=== PATIENT | female | born 1970 ===

== ENCOUNTER 2016-06-17 09:48 | Day surgery (SDC) | payer SELFPAY ==
[2016-04-05 12:11] VITALS: BMI 28.2
[2016-06-17] MEDS ORDERED: Lactated Ringer's 500 ML IV ONE (10:15)
[2016-06-17] MEDS ORDERED: Propofol 10 mg/ml Inj (20 ML) ONE (10:26)
[2016-06-17 11:24] VITALS: BP 98/63; PULSE 59; RESP 14; TEMP 97; O2SAT 97
== END 2016-06-17 12:22 | disposition home or self-care (01) ==
LOC: H.ENDO 09:48
PROVIDERS: ATTEND Internal Medicine Gastroenterology
DX: K30 Functional dyspepsia (principal); K31.9 Disease of stomach and duodenum, unspecified

== ENCOUNTER 2016-08-07 21:22 | Emergency (ER) | payer SELFPAY ==
[2016-08-07 21:23] VITALS: BMI 28.2
[2016-08-07 21:54] VITALS: BP 122/72; PULSE 72; RESP 18; TEMP 98.2; O2SAT 98
--- NOTE | 2016-08-07 22:05 | ED PDOC ---
HPI: Headache Time Seen by Provider: 08/07/16 21:56 Chief Complaint (Nursing): Headache Chief Complaint (Provider): Headache History Per: Patient History/Exam Limitations: no limitations Onset/Duration Of Symptoms: Days (x1) Current Symptoms Are (Timing): Still Present Additional Complaint(s): 21:56 Marilin Galindo is a 46 year old female that presents to the ED with a chief complaint of a left-sided throbbing occipital headache that began last night. Patient states that she took one over the counter migraine tablet with no relief, and that her headache did not wake her up from her sleep. She also reports that she has a history of similar migraines. Past Medical History Reviewed: Historical Data, Nursing Documentation, Vital Signs Vital Signs: Last Vital Signs Temp 98.2 F 08/07/16 21:51 Pulse 72 08/07/16 21:51 Resp 18 08/07/16 21:51 BP 122/72 08/07/16 21:51 Pulse Ox 98 08/07/16 21:51 - Medical History PMH: Migraine Denies: Chronic Kidney Disease - Surgical History Surgical History: Cholecystectomy, (x2) - Family History Family History: States: Unknown Family Hx - Home Medications Home Medications: Ambulatory Orders Medication Instructions Recorded Ibuprofen [Motrin] 600 mg PO Q6 #20 tab 08/07/16 - Allergies Allergies/Adverse Reactions: Allergies Allergy/AdvReac Type Severity Reaction Status Date / Time No Known Allergies Allergy Verified 06/17/16 10:16 Review of Systems Neurological: Positive for: Headache (left-sided throbbing occipital headache) Physical Exam - Reviewed Nursing Documentation Reviewed: Yes Vital Signs Reviewed: Yes - Physical Exam Appears: Positive for: Non-toxic, No Acute Distress Head Exam: Positive for: ATRAUMATIC, NORMOCEPHALIC Skin: Positive for: Normal Color, Warm Eye Exam: Positive for: Normal appearance, EOMI, PERRL Neurologic/Psych: Positive for: Alert, Oriented - ECG O2 Sat by Pulse Oximetry: 98 (RA) Pulse Ox Interpretation: Normal Medical Decision Making Medical Decision Makin:05 Impression: Headache Plan: * Toradol 30 mg IV * Reglan 10 mg IV * Reevaluation * * Pt reports feeling greatly improved on re-eval. Neuro exam remains non focal. Stable for discharge at this time Scribe Attestation: Documented by Traci Hunt, acting as a scribe for Sandy Osman PA-C. Provider Scribe Attestation: All medical record entries made by the Scribe were at my direction and personally dictated by me. I have reviewed the chart and agree that the record accurately reflects my personal performance of the history, physical exam, medical decision making, and the department course for this patient. I have also personally directed, reviewed, and agree with the discharge instructions and disposition. Disposition - Clinical Impression Clinical Impression: Migraine - Patient ED Disposition Is Patient to be Admitted: No - Disposition Disposition: Routine/Home Disposition Time: 23:13 Condition: STABLE Prescriptions: Ibuprofen [Motrin] 600 mg PO Q6 #20 tab Instructions: Migraine Headache (ED) Forms: [facility] (Swedish) Print Language: ICELANDIC - POA Present On Arrival: None
== END 2016-08-07 23:32 | disposition home or self-care (01) ==
LOC: H.ER 21:22
DX: G43.909 Migraine, unspecified, not intractable, without status migrainosus (principal)

== ENCOUNTER 2016-09-14 14:51 | Emergency (ER) | payer SELFPAY ==
[2016-09-14 14:52] VITALS: BMI 28.2
[2016-09-14 15:49] VITALS: TEMP 98
[2016-09-14] MEDS ORDERED: Sodium Chloride 0.9% 1,000 ML IV STA (16:11)
--- NOTE | 2016-09-14 16:21 | ED PDOC ---
HPI: Headache Time Seen by Provider: 09/14/16 16:03 Chief Complaint (Nursing): Headache Chief Complaint (Provider): Headache History Per: Patient History/Exam Limitations: no limitations Onset/Duration Of Symptoms: Days (2) Current Symptoms Are (Timing): Still Present Severity: Moderate Quality: Pressure Preceeding Symptoms: Known Migraine Symptoms Associated Symptoms: Nausea. denies: Photophobia, Blurred Vision, Vomiting, Extremity Weakness Additional History Per: Patient Additional Complaint(s): 46 y/o female complaining of occipital head pain for the last two days, described as moderate to severe constant pressure, and associated with nausea. No fever, vomiting, vision changes, recent stress, or other complaint. She reports a history of similar in the past and did try Tylenol and Excedrin without relief. Patient has been seen in this ED in the past as well for similar when her pain is uncontrollable at home. Past Medical History Vital Signs: Last Vital Signs Temp 98 F 09/14/16 15:45 Pulse 58 L 09/14/16 15:45 Resp 18 09/14/16 15:45 BP 112/49 L 09/14/16 15:45 Pulse Ox 97 09/14/16 15:45 - Medical History PMH: Migraine Denies: Chronic Kidney Disease - Surgical History Surgical History: Cholecystectomy, (x2) - Family History Family History: States: Unknown Family Hx - Social History Current smoker - smoking cessation education provided: No - Home Medications Home Medications: Ambulatory Orders Medication Instructions Recorded Ibuprofen [Motrin] 600 mg PO Q6 #20 tab 08/07/16 Metoclopramide [Reglan] 1 tab PO TID PRN #15 tab 09/14/16 Naproxen [Naprosyn] 1 tab PO BID PRN #60 tab 09/14/16 - Allergies Allergies/Adverse Reactions: Allergies Allergy/AdvReac Type Severity Reaction Status Date / Time No Known Allergies Allergy Verified 09/14/16 15:45 Review of Systems ROS Statement: Except As Marked, All Systems Reviewed And Found Negative Gastrointestinal: Positive for: Nausea Neurological: Positive for: Headache Physical Exam - Reviewed Vital Signs Reviewed: Yes - Physical Exam Appears: Positive for: Well, Non-toxic Head Exam: Positive for: ATRAUMATIC Skin: Positive for: Normal Color, Warm, Dry. Negative for: Diaphoresis Eye Exam: Positive for: Normal appearance, EOMI, PERRL. Negative for: Nystagmus Neck: Positive for: Normal Cardiovascular/Chest: Positive for: Regular Rate, Rhythm. Negative for: Gallop , Murmur, Friction Rub Respiratory: Positive for: Normal Breath Sounds. Negative for: Rales, Rhonchi, Wheezing, Respiratory Distress Gastrointestinal/Abdominal: Positive for: Normal Exam, Bowel Sounds, Soft. Negative for: Tenderness Back: Positive for: Normal Inspection Extremity: Positive for: Normal ROM Neurologic/Psych: Positive for: Alert, resident service coordinator II-XII, Oriented, Cerebellar Tests ( normal finger to nose), Gait (normal). Negative for: Motor/Sensory Deficits - ECG O2 Sat by Pulse Oximetry: 97 (RA) Medical Decision Making Medical Decision Making: Initial Impression: Migraine Initial Plan: - IVF - Reglan and Toradol - Urine Test 1700 Pt feels better. Scribe Attestation: Documented by Katie Mccabe acting as a scribe for Sandy Quintanilla MD. MD Scribe Attestation: All medical record entries made by the Scribe were at my direction and personally dictated by me. I have reviewed the chart and agree that the record accurately reflects my personal performance of the history, physical exam, medical decision making, and the department course for this patient. I have also personally directed, reviewed, and agree with the discharge instructions and disposition. Disposition - Clinical Impression Clinical Impression: Migraine - Disposition Referrals: [facility] [Outside] - 09/15/16 Disposition: Routine/Home Disposition Time: 17:00 Condition: IMPROVED Prescriptions: Metoclopramide [Reglan] 1 tab PO TID PRN #15 tab PRN Reason: Nausea/Vomiting Naproxen [Naprosyn] 1 tab PO BID PRN #60 tab PRN Reason: Pain Instructions: Migraine Headache (ED) Print Language: IRAQI
[2016-09-14 17:38] VITALS: BP 127/76; PULSE 78; RESP 20; O2SAT 98
== END 2016-09-14 17:39 | disposition home or self-care (01) ==
LOC: H.ER 14:51
DX: G43.909 Migraine, unspecified, not intractable, without status migrainosus (principal); R11.0 Nausea

== ENCOUNTER 2017-03-15 09:14 | Emergency (ER) | payer SELFPAY ==
[2017-03-15 09:21] VITALS: BMI 35.5
[2017-03-15 09:23] VITALS: BP 111/68; PULSE 58; RESP 16; TEMP 97.4; O2SAT 98
--- NOTE | 2017-03-15 10:20 | ED PDOC ---
HPI: General Adult Time Seen by Provider: 03/15/17 09:32 Chief Complaint (Nursing): Flu-like Symptoms Chief Complaint (Provider): Flu-like Symptoms History Per: Patient History/Exam Limitations: no limitations Onset/Duration Of Symptoms: Days (x1 week) Current Symptoms Are (Timing): Still Present Additional Complaint(s): Marilin Galindo is a 47 year old female with no significant past medical history, who presents to the ED complaining of flu-like symptoms with associated right ear pain, cough, congestion, fever, and sore throat x1 week. Denies vomiting, diarrhea, abdominal pain, and sick contacts. States she has received a flu vaccine this year. PMD: Non-[facility] Provider Past Medical History Reviewed: Historical Data, Nursing Documentation, Vital Signs Vital Signs: Last Vital Signs Temp 97.4 F L 03/15/17 09:21 Pulse 58 L 03/15/17 09:21 Resp 16 03/15/17 09:21 BP 111/68 03/15/17 09:21 Pulse Ox 98 03/15/17 10:28 - Medical History PMH: Migraine Denies: Chronic Kidney Disease - Surgical History Surgical History: Cholecystectomy, (x2) - Family History Family History: States: Unknown Family Hx - Home Medications Home Medications: Ambulatory Orders Medication Instructions Recorded Ibuprofen [Motrin] 600 mg PO Q6 #20 tab 08/07/16 Metoclopramide [Reglan] 1 tab PO TID PRN #15 tab 09/14/16 Naproxen [Naprosyn] 1 tab PO BID PRN #60 tab 09/14/16 Azithromycin [Zithromax] 250 mg PO DAILY #6 tab 03/15/17 Guaifenesin [Mucinex] 600 mg PO BID PRN #10 tab.er.12h 03/15/17 Ibuprofen [Motrin Tab] 600 mg PO Q6 PRN #15 tab 03/15/17 - Allergies Allergies/Adverse Reactions: Allergies Allergy/AdvReac Type Severity Reaction Status Date / Time No Known Allergies Allergy Verified 09/14/16 15:45 Review of Systems ROS Statement: Except As Marked, All Systems Reviewed And Found Negative Constitutional: Positive for: Fever, Malaise ENT: Positive for: Ear Pain (right), Nose Congestion, Throat Pain Respiratory: Positive for: Cough Gastrointestinal: Negative for: Vomiting, Abdominal Pain, Diarrhea Musculoskeletal: Negative for: Neck Pain Skin: Negative for: Rash Physical Exam - Reviewed Nursing Documentation Reviewed: Yes Vital Signs Reviewed: Yes - Physical Exam Appears: Positive for: Well, Non-toxic, No Acute Distress Head Exam: Positive for: ATRAUMATIC, NORMAL INSPECTION, NORMOCEPHALIC Skin: Positive for: Normal Color, Warm, Dry. Negative for: Rash Eye Exam: Positive for: EOMI, Normal appearance, PERRL ENT: Positive for: TM Is/Are (Fluid behind right TM), Pharyngeal Erythema (mild) . Negative for: Tonsillar Exudate Neck: Positive for: Normal, Painless ROM, Supple Cardiovascular/Chest: Positive for: Regular Rate, Rhythm. Negative for: Murmur Respiratory: Positive for: Normal Breath Sounds. Negative for: Respiratory Distress Gastrointestinal/Abdominal: Positive for: Normal Exam, Bowel Sounds, Soft. Negative for: Tenderness Back: Positive for: Normal Inspection. Negative for: L CVA Tenderness, R CVA Tenderness, Vertebral Tenderness Extremity: Positive for: Normal ROM. Negative for: Pedal Edema, Deformity Neurologic/Psych: Positive for: Alert, Oriented (x3). Negative for: Motor/ Sensory Deficits - ECG O2 Sat by Pulse Oximetry: 98 (RA) Pulse Ox Interpretation: Normal Medical Decision Making Medical Decision Making: Time: 10:09 Initial Impression: Flu-like illness Plan: --ED Urine dipstick --Chest X-Ray two views --Toradol 30 mg IM --Influenza AB --Reevaluation Flu swab neg CXR read by radiologist as no lobar pneumonia Improved s/p toradol IM, given ear findings, productive cough, cover w Azithromycin x5d course, Rx motrin and antitussive. Has young grandkids at home, explained avoid close contact, given mask to wear at home for exposure minimization. Scribe Attestation: Documented by Higinio Kurtz, acting as a scribe for Km Morfin DO. Provider Scribe Attestation: All medical record entries made by the Scribe were at my direction and personally dictated by me. I have reviewed the chart and agree that the record accurately reflects my personal performance of the history, physical exam, medical decision making, and the department course for this patient. I have also personally directed, reviewed, and agree with the discharge instructions and disposition. Disposition - Clinical Impression Clinical Impression: Upper respiratory infection - Patient ED Disposition Is Patient to be Admitted: No Counseled Patient/Family Regarding: Studies Performed, Diagnosis, Need For Followup, Rx Given - Disposition Referrals: [facility] [Outside] Disposition: Routine/Home Disposition Time: 11:59 Condition: STABLE Additional Instructions: Return to ER for any worse or new symptoms. Take medications as directed. Prescriptions: Azithromycin [Zithromax] 250 mg PO DAILY #6 tab Guaifenesin [Mucinex] 600 mg PO BID PRN #10 tab.er.12h PRN Reason: Cough Ibuprofen [Motrin Tab] 600 mg PO Q6 PRN #15 tab PRN Reason: Pain, Moderate (4-7) Instructions: Upper Respiratory Infection (ED) Forms: [employer] (Senegalese) Print Language: JAPANESE
--- NOTE | 2017-03-15 11:31 | RAD ---
HISTORY: COMPARISON: 01/19/2016 TECHNIQUE: Chest PA and lateral FINDINGS: LINES AND TUBES: None. LUNG AND PLEURA: There is mild pulmonary hyperinflation and there is linear atelectasis/ scarring in the left lower lobe. No focal consolidation. HEART AND MEDIASTINUM: The heart is not enlarged. The hilar and mediastinal contours are within normal limits. SKELETAL STRUCTURES: The bony structures are within normal limits for the patient's age. VISUALIZED UPPER ABDOMEN: Normal. OTHER FINDINGS: None. IMPRESSION: Findings are most compatible with reactive small airway disease. No lobar pneumonia.
== END 2017-03-15 12:34 | disposition home or self-care (01) ==
LOC: H.ER 09:14
DX: J06.9 Acute upper respiratory infection, unspecified (principal)
CPT/HCPCS: 71020; 81025; 87804; 96372; 99282; J1885

== ENCOUNTER 2017-04-01 14:38 | Emergency (ER) | payer SELFPAY ==
[2017-04-01 14:39] VITALS: BMI 35.5
[2017-04-01 15:06] VITALS: BP 126/66; PULSE 62; RESP 18; TEMP 97.9; O2SAT 99
--- NOTE | 2017-04-01 16:45 | ED PDOC ---
HPI: Female Pain Time Seen by Provider: 04/01/17 16:40 Chief Complaint (Nursing): Female Genitourinary Chief Complaint (Provider): Suprapubic pain History Per: Patient History/Exam Limitations: no limitations Onset/Duration Of Symptoms: Days (x2) Current Symptoms Are (Timing): Still Present Additional Complaint(s): 47 year old female with no past medical history presents to the ER complaining of suprapubic pain associated with dysuria and hematuria, for 2 days. Denies any back pain, nausea, vomiting, or fever. No recent antibiotic use. PMD: Dr. Escalera Past Medical History Reviewed: Historical Data, Nursing Documentation, Vital Signs Vital Signs: Last Vital Signs Temp 97.9 F 04/01/17 15:04 Pulse 62 04/01/17 15:04 Resp 18 04/01/17 15:04 BP 126/66 04/01/17 15:04 Pulse Ox 99 04/01/17 15:04 - Medical History PMH: Migraine Denies: Chronic Kidney Disease - Surgical History Surgical History: Cholecystectomy, (x2) - Family History Family History: States: Unknown Family Hx - Home Medications Home Medications: Ambulatory Orders Medication Instructions Recorded Ibuprofen [Motrin] 600 mg PO Q6 #20 tab 08/07/16 Metoclopramide [Reglan] 1 tab PO TID PRN #15 tab 09/14/16 Naproxen [Naprosyn] 1 tab PO BID PRN #60 tab 09/14/16 Azithromycin [Zithromax] 250 mg PO DAILY #6 tab 03/15/17 Guaifenesin [Mucinex] 600 mg PO BID PRN #10 tab.er.12h 03/15/17 Ibuprofen [Motrin Tab] 600 mg PO Q6 PRN #15 tab 03/15/17 Cephalexin [Keflex] 500 mg PO TID #15 capsule 04/01/17 Phenazopyridine HCl [Pyridium] 100 mg PO BID PRN #14 tablet 04/01/17 - Allergies Allergies/Adverse Reactions: Allergies Allergy/AdvReac Type Severity Reaction Status Date / Time No Known Allergies Allergy Verified 09/14/16 15:45 Review of Systems ROS Statement: Except As Marked, All Systems Reviewed And Found Negative Constitutional: Negative for: Fever, Chills Gastrointestinal: Positive for: Abdominal Pain (lower). Negative for: Nausea, Vomiting Genitourinary Female: Positive for: Dysuria, Hematuria. Negative for: Incontinence Musculoskeletal: Negative for: Back Pain Physical Exam - Reviewed Nursing Documentation Reviewed: Yes Vital Signs Reviewed: Yes - Physical Exam Appears: Positive for: Well, Non-toxic, No Acute Distress Head Exam: Positive for: ATRAUMATIC, NORMAL INSPECTION, NORMOCEPHALIC Skin: Positive for: Normal Color, Warm, Dry Eye Exam: Positive for: EOMI, Normal appearance, PERRL Neck: Positive for: Normal, Painless ROM Gastrointestinal/Abdominal: Positive for: Soft, Tenderness (to suprapubic region ). Negative for: Guarding, Rebound Back: Positive for: Normal Inspection. Negative for: L CVA Tenderness, R CVA Tenderness, Vertebral Tenderness, Other (Flank tenderness) Extremity: Positive for: Normal ROM. Negative for: Deformity Neurologic/Psych: Positive for: Alert, Oriented - Laboratory Results Urine POC: Negative Urine dip results: Positive for: Leukocyte Esterase, Blood. Negative for: Nitrate, Ketones, Glucose, Bilirubin, Protein - ECG O2 Sat by Pulse Oximetry: 99 (RA) Pulse Ox Interpretation: Normal Medical Decision Making Medical Decision Making: Time: 16:36 Initial Plan: --ED urine --ED urine dip --Urinalysis --Urine culture --Reevaluation Scribe Attestation: Documented by Nanci Muñoz, acting as a scribe for Hollie Oreilly PA-C Provider Scribe Attestation: All medical record entries made by the Scribe were at my direction and personally dictated by me. I have reviewed the chart and agree that the record accurately reflects my personal performance of the history, physical exam, medical decision making, and the department course for this patient. I have also personally directed, reviewed, and agree with the discharge instructions and disposition. Disposition - Clinical Impression Clinical Impression: Urinary tract infection - Patient ED Disposition Is Patient to be Admitted: No - Disposition Disposition: Routine/Home Disposition Time: 17:09 Condition: FAIR Prescriptions: Cephalexin [Keflex] 500 mg PO TID #15 capsule Phenazopyridine HCl [Pyridium] 100 mg PO BID PRN #14 tablet PRN Reason: Urinary Discomt Instructions: Urinary Tract Infection in Women (DC) Forms: [employer] (Albanian) Print Language: LIBERIAN
[2017-04-01 17:32] LABS: SQUAMOUS EPITHIAL < 1 /hpf (0-5); URINE BACTERIA RARE (<OCC); URINE BILIRUBIN NEGATIVE (NEGATIVE); URINE BLOOD MODERATE (NEGATIVE); URINE CLARITY CLEAR (Clear); URINE COLOR STRAW (YELLOW); URINE GLUCOSE (UA) NEG (Normal); URINE LEUKOCYTE ESTERASE MOD Leu/uL (Negative); URINE NITRATE NEGATIVE (NEGATIVE); URINE PROTEIN NEGATIVE (NEGATIVE); URINE UROBILINOGEN 0.2-1.0 mg/dL (0.2-1.0)
== END 2017-04-01 17:22 | disposition home or self-care (01) ==
LOC: H.ER 14:38
DX: N39.0 Urinary tract infection, site not specified (principal)

== ENCOUNTER 2017-04-27 10:20 | Emergency (ER) | payer SELFPAY ==
[2017-04-27 10:21] VITALS: BMI 35.5
[2017-04-27 10:46] VITALS: BP 136/76; PULSE 91; RESP 18; TEMP 99.9; O2SAT 99
[2017-04-27] MEDS ORDERED: Albuterol 0.083% Inhal Sol (2.5 mg/3 mL) UD INH STA (12:18)
--- NOTE | 2017-04-27 12:20 | ED PDOC ---
HPI: CCC, URI, Sore Throat Time Seen by Provider: 04/27/17 11:20 Chief Complaint (Nursing): Flu-like Symptoms Chief Complaint (Provider): Cough, flu-like symptoms History Per: Patient History/Exam Limitations: no limitations Have you had recent travel within the past 21 days to any of the following countries: [place], [place], [place] or [place]?: No Onset/Duration Of Symptoms: Days (4) Current Symptoms Are (Timing): Still Present Sick Contacts (Context): None Associated Symptoms: Fever, Cough, Myalgias Additional History Per: Patient Additional Complaint(s): 47yo female, presents to ED with complaints of cough for the past 4 days with associated fever and bodyaches. She denies any chest pain, shortness of breath, hemoptysis, nausea, vomiting, diarrhea or abdominal pain. She also denies any recent sick contacts. No other medical complaints. Past Medical History Reviewed: Historical Data, Nursing Documentation, Vital Signs Vital Signs: Last Vital Signs Temp 99.9 F H 04/27/17 10:44 Pulse 91 H 04/27/17 10:44 Resp 18 04/27/17 10:44 BP 136/76 04/27/17 10:44 Pulse Ox 99 04/27/17 14:19 - Medical History PMH: Migraine Denies: Chronic Kidney Disease - Surgical History Surgical History: Cholecystectomy, (x2) - Family History Family History: States: Unknown Family Hx - Home Medications Home Medications: Ambulatory Orders Medication Instructions Recorded Ibuprofen [Motrin] 600 mg PO Q6 #20 tab 08/07/16 Metoclopramide [Reglan] 1 tab PO TID PRN #15 tab 09/14/16 Naproxen [Naprosyn] 1 tab PO BID PRN #60 tab 09/14/16 Azithromycin [Zithromax] 250 mg PO DAILY #6 tab 03/15/17 Guaifenesin [Mucinex] 600 mg PO BID PRN #10 tab.er.12h 03/15/17 Ibuprofen [Motrin Tab] 600 mg PO Q6 PRN #15 tab 03/15/17 Cephalexin [Keflex] 500 mg PO TID #15 capsule 04/01/17 Phenazopyridine HCl [Pyridium] 100 mg PO BID PRN #6 tablet 04/01/17 Albuterol HFA [Ventolin HFA 90 2 puff IH [id number] PRN #90 puff 04/27/17 mcg/actuation (8 g)] Azithromycin [Zithromax] 250 mg PO DAILY #6 tab 04/27/17 Promethazine DM [Phenergan DM 5 - 10 ml PO Q8 PRN #120 ml 04/27/17 Syrup] - Allergies Allergies/Adverse Reactions: Allergies Allergy/AdvReac Type Severity Reaction Status Date / Time No Known Allergies Allergy Verified 09/14/16 15:45 Review of Systems ROS Statement: Except As Marked, All Systems Reviewed And Found Negative Constitutional: Positive for: Fever, Malaise ENT: Positive for: Throat Pain Cardiovascular: Negative for: Chest Pain Respiratory: Positive for: Cough. Negative for: Shortness of Breath, Hemoptysis Physical Exam - Reviewed Nursing Documentation Reviewed: Yes Vital Signs Reviewed: Yes - Physical Exam Appears: Positive for: Non-toxic, No Acute Distress Skin: Positive for: Normal Color Eye Exam: Positive for: EOMI, PERRL ENT: Positive for: Normal ENT Inspection. Negative for: Pharyngeal Erythema, Tonsillar Exudate, Tonsillar Swelling Neck: Positive for: Supple Cardiovascular/Chest: Positive for: Regular Rate, Rhythm Respiratory: Positive for: Wheezing (minimal expiratory wheeze bilaterally), Other (active cough). Negative for: Respiratory Distress Neurologic/Psych: Positive for: Alert, Oriented - ECG O2 Sat by Pulse Oximetry: 99 (RA) Pulse Ox Interpretation: Normal - Radiology X-Ray: Interpreted by Me (CXR) X-Ray Interpretation: No Acute Disease Medical Decision Making Medical Decision Making: Impression: URI Plan: -- CXR -- Albuterol 2.5 mg INH Scribe Attestation: Documented by Briana Duarte acting as a scribe for GERMAIN Ball Provider Attestation: All medical record entries made by the Scribe were at my direction and personally dictated by me. I have reviewed the chart and agree that the record accurately reflects my personal performance of the history, physical exam, medical decision making, and the department course for this patient. I have also personally directed, reviewed, and agree with the discharge instructions and disposition. Disposition - Clinical Impression Clinical Impression: Acute bronchitis - Patient ED Disposition Is Patient to be Admitted: No - Disposition Referrals: [facility] [Outside] Disposition: Routine/Home Disposition Time: 13:30 Condition: STABLE Prescriptions: Albuterol HFA [Ventolin HFA 90 mcg/actuation (8 g)] 2 puff IH [id number] PRN #90 puff PRN Reason: Cough Azithromycin [Zithromax] 250 mg PO DAILY #6 tab Promethazine DM [Phenergan DM Syrup] 5 - 10 ml PO Q8 PRN #120 ml PRN Reason: Cough Instructions: Acute Bronchitis (ED) Forms: [employer] [facility] (Hebrew)
[2017-04-27] MEDS ORDERED: Albuterol 0.083% Inhal Sol (2.5 mg/3 mL) UD ONE (12:26)
--- NOTE | 2017-04-27 14:55 | RAD ---
HISTORY: Cough. COMPARISON: 03/15/2017 TECHNIQUE: Chest PA and lateral FINDINGS: LUNGS: No active pulmonary disease. PLEURA: No significant pleural effusion identified. No pneumothorax apparent. CARDIOVASCULAR: No radiographic findings to suggest acute or significant cardiovascular disease. OSSEOUS STRUCTURES: No significant abnormalities. VISUALIZED UPPER ABDOMEN: Normal. OTHER FINDINGS: None. IMPRESSION: No active disease. No significant interval change compared to the prior examination(s).
== END 2017-04-27 14:25 | disposition home or self-care (01) ==
LOC: H.ER 10:20
DX: J20.9 Acute bronchitis, unspecified (principal)

== ENCOUNTER 2017-07-19 16:28 | Emergency (ER) | payer SELFPAY ==
[2017-07-19 16:29] VITALS: BMI 35.5
[2017-07-19] MEDS ORDERED: Sodium Chloride 0.9% 1,000 ML IV STA ×2 (16:51→17:03)
[2017-07-19] MEDS ORDERED: Iohexol 240 (50 ml) PO ONE (17:04)
[2017-07-19] MEDS ORDERED: Alum-Mag Hydrox-Simethicone Susp (30 mL) PO ONE (17:04)
[2017-07-19] MEDS ORDERED: Alum-Mag Hydrox-Simethicone Susp (30 mL) ONE (17:13)
[2017-07-19] MEDS ORDERED: Iohexol 240 (50 ml) ONE (17:14)
[2017-07-19 17:16] LABS: BASO % 0.7 % (0.0-2.0); EOS # 0.1 K/uL (0.0-0.7); EOS % 2.4 % (0.0-4.0); HEMOGLOBIN 13.3 g/dL (12.0-16.0); LYMPH # 1.7 K/uL (1.0-4.3); LYMPH % 34.1 % (20.0-40.0); MEAN CELL VOLUME 91.9 fl (81.0-99.0); MEAN CORPUSCULAR HEMOGLOBIN 30.8 pg (27.0-31.0); MEAN CORPUSCULAR HGB CONC 33.5 g/dL (33.0-37.0); MONO # 0.4 K/uL (0.0-0.8); NEUT # 2.8 K/uL (1.8-7.0); NEUT % 54.8 % (50.0-75.0); NRBC % 0.1 % (0.0-0.0); RBC 4.31 Mil/uL (3.80-5.20); RED CELL DISTRIBUTION WIDTH 13.5 % (11.5-14.5); WHITE BLOOD COUNT 5.1 K/uL (4.8-10.8)
[2017-07-19 17:22] LABS: SQUAMOUS EPITHIAL 1 /hpf (0-5); URINE AMORPHOUS SEDIMENT RARE /ul (<OCC); URINE BILIRUBIN NEGATIVE (NEGATIVE); URINE BLOOD NEGATIVE (NEGATIVE); URINE CLARITY SLIGHTY-CLOUDY (Clear); URINE COLOR YELLOW (YELLOW); URINE GLUCOSE (UA) NEG (Normal); URINE LEUKOCYTE ESTERASE NEG Leu/uL (Negative); URINE PROTEIN NEGATIVE (NEGATIVE); URINE UROBILINOGEN 0.2-1.0 mg/dL (0.2-1.0)
[2017-07-19 17:27] LABS: ALB/GLOB RATIO 1.2 (1.0-2.1); ALBUMIN 3.9 g/dL (3.5-5.0); ALT/SGPT 47 U/L (9-52); AST/SGOT 30 U/L (14-36); BLOOD UREA NITROGEN 17 mg/dl (7-17); CALCIUM 9.3 mg/dL (8.4-10.2); GFR AFRICAN-AMERICAN > 60; GFR NON-AFRICAN AMERICAN > 60; LIPASE 88 U/L (23-300)
--- NOTE | 2017-07-19 18:01 | ED PDOC ---
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 denies: Back Pain Exacerbating Factors: None Alleviating Factors: None Last Bowel Movement: Today Additional Complaint(s): 47yo female c/o upper abdominal pain started acutely this morning, also experienced similar but less severe symptoms, 2 days ago and several months ago. Denies melena or weakness, BRBPR or hematemesis. Denies fever or urinary symptoms. Completed a course of Abx for UTI several months ago. Past Medical History Reviewed: Historical Data, Nursing Documentation, Vital Signs Vital Signs: Last Vital Signs Temp 98 F 07/19/17 22:05 Pulse 65 07/19/17 22:05 Resp 18 07/19/17 22:05 BP 112/68 07/19/17 22:05 Pulse Ox 100 07/19/17 22:05 - Medical History PMH: No Chronic Diseases, Migraine Denies: Chronic Kidney Disease - Surgical History Surgical History: Cholecystectomy, (x2) - Family History Family History: States: Unknown Family Hx - Living Arrangements Living Arrangements: With Family - Social History Current smoker - smoking cessation education provided: No - Home Medications Home Medications: Ambulatory Orders Medication Instructions Recorded Ibuprofen [Motrin] 600 mg PO Q6 #20 tab 08/07/16 Metoclopramide [Reglan] 1 tab PO TID PRN #15 tab 09/14/16 Naproxen [Naprosyn] 1 tab PO BID PRN #60 tab 09/14/16 Azithromycin [Zithromax] 250 mg PO DAILY #6 tab 03/15/17 Guaifenesin [Mucinex] 600 mg PO BID PRN #10 tab.er.12h 03/15/17 Ibuprofen [Motrin Tab] 600 mg PO Q6 PRN #15 tab 03/15/17 Cephalexin [Keflex] 500 mg PO TID #15 capsule 04/01/17 Phenazopyridine HCl [Pyridium] 100 mg PO BID PRN #6 tablet 04/01/17 Albuterol HFA [Ventolin HFA 90 2 puff IH [id number] PRN #90 puff 04/27/17 mcg/actuation (8 g)] Azithromycin [Zithromax] 250 mg PO DAILY #6 tab 04/27/17 Promethazine DM [Phenergan DM 5 - 10 ml PO Q8 PRN #120 ml 04/27/17 Syrup] Ranitidine HCl [Zantac] 150 mg PO BID #20 tablet 07/19/17 - Allergies Allergies/Adverse Reactions: Allergies Allergy/AdvReac Type Severity Reaction Status Date / Time No Known Allergies Allergy Verified 09/14/16 15:45 Review of Systems Constitutional: Negative for: Fever, Chills, Malaise Respiratory: Negative for: Cough, Shortness of Breath Gastrointestinal: Positive for: Nausea, Vomiting, Abdominal Pain, Diarrhea. Negative for: Constipation, Melena Genitourinary Female: Negative for: Dysuria Musculoskeletal: Negative for: Neck Pain Skin: Negative for: Rash, Lesions Neurological: Negative for: Weakness, Numbness Psych: Negative for: Anxiety Physical Exam - Reviewed Nursing Documentation Reviewed: Yes Vital Signs Reviewed: Yes - Physical Exam Appears: Positive for: Well, Non-toxic, No Acute Distress Head Exam: Positive for: ATRAUMATIC, NORMAL INSPECTION, NORMOCEPHALIC Skin: Positive for: Normal Color, Warm, DRY Eye Exam: Positive for: EOMI, Normal appearance, PERRL ENT: Positive for: Normal ENT Inspection Neck: Positive for: Normal, Painless ROM Cardiovascular/Chest: Positive for: Regular Rate, Rhythm Respiratory: Positive for: CNT, Normal Breath Sounds Gastrointestinal/Abdominal: Positive for: Soft, Tenderness (upper abd pain), Guarding Back: Positive for: Normal Inspection Extremity: Positive for: Normal ROM Neurologic/Psych: Positive for: Alert, Oriented. Negative for: Motor/Sensory Deficits - Laboratory Results Result Diagrams: 07/19/17 17:09 07/19/17 17:09 - ECG O2 Sat by Pulse Oximetry: 99 Medical Decision Making Medical Decision Making: workup for abd pain initiated labs reviewed and unremarkable CT abd pelv report reviewed D/w FP resident who viewed eCW charts and +hpylori without evidence of test of cure in past. Possible recurrence. GI paged, was awaiting callback when patient requested discharge as felt better. Rx zantac, has contact info for Dr Hartley/ clinic. Disposition - Clinical Impression Clinical Impression: Abdominal pain - Patient ED Disposition Is Patient to be Admitted: No Counseled Patient/Family Regarding: Studies Performed, Diagnosis, Need For Followup - Disposition Referrals: Khris Hartley MD [Medical Doctor] - Disposition: Routine/Home Disposition Time: 21:01 Condition: STABLE Additional Instructions: See Dr Hartley for further testing. Return to ER for any worse or new symptoms. Prescriptions: Ranitidine HCl [Zantac] 150 mg PO BID #20 tablet Instructions: Acute Abdomen (Belly Pain), Adult (DC), Gastritis (DC) Forms: [facility] (Iraqi) Print Language: YAKUT
[2017-07-19 18:51] VITALS: RESP 18; TEMP 98
[2017-07-19] MEDS ORDERED: Iohexol 300 100 ML IJ ONE (18:58)
--- NOTE | 2017-07-19 20:28 | CT ---
EXAM: CT Abdomen and Pelvis With Intravenous Contrast EXAM DATE/TIME: 07/19/2017 5:04 PM CLINICAL HISTORY: 47 years old, female; Pain; Abdominal pain; Localized; Upper; Prior surgery; Surgery date: 6+ months; Surgery type: Cholecystectomy; Additional info: Upper abd pain, guarding TECHNIQUE: Axial computed tomography images of the abdomen and pelvis with intravenous contrast. All CT scans at this facility use one or more dose reduction techniques, viz.: automated exposure control; ma/kV adjustment per patient size (including targeted exams where dose is matched to indication; i.e. head); or iterative reconstruction technique. Coronal and sagittal reformatted images were created and reviewed. CONTRAST: 90 mL of [id number] administered intravenously. COMPARISON: Prior CT abdomen and pelvis of 2016-04-05 FINDINGS: LUNG BASES: No significant abnormality seen. ABDOMEN: LIVER: Fatty infiltration of the liver. GALLBLADDER AND BILE DUCTS: Cholecystectomy clips. Common bile duct does not appear significantly dilated. PANCREAS: No CT evidence of acute pancreatitis. SPLEEN: No acute abnormality of the spleen identified. ADRENALS: No acute abnormality of the adrenal glands identified. KIDNEYS AND URETERS: No acute abnormality of the kidneys identified. No evidence of significant hydrouereteronephrosis. STOMACH AND BOWEL: Mild wall thickening of the ascending colon. This could represent pseudo-wall thickening due to underdistention/incomplete distension versus mild, segmental colitis. Otherwise, no significant abnormality of the bowel is identified. No evidence of diffuse colitis/pancolitis. No evidence of bowel obstruction. PELVIS: APPENDIX: Appendix is seen, and is within normal limits in appearance. BLADDER: Mild thickening of the bladder wall. REPRODUCTIVE:No acute abnormality of the reproductive organs is seen. No acute abnormality of the uterus identified. No evidence of large adnexal masses. ABDOMEN and PELVIS: INTRAPERITONEAL SPACE: No evidence of free intraperitoneal air or fluid. BONES/JOINTS: No acute fractures or other acute bony abnormality noted. SOFT TISSUES: Small umbilical hernia, containing only fat. VASCULATURE: No evidence of abdominal aortic aneurysm. No evidence of periaortic hemorrhage. LYMPH NODES: No evidence of diffuse lymphadenopathy. IMPRESSION: - Mild bladder wall thickening. This is a nonspecific finding, but can be seen with cystitis. - Underdistention versus wall thickening/mild segmental colitis involving the ascending colon. Recommend clinical correlation. - Otherwise, no evidence of significant acute process. - See above for remaining findings.
[2017-07-19 22:05] VITALS: BP 112/68; PULSE 65
[2017-07-20 13:08] VITALS: O2SAT 99
== END 2017-07-19 22:18 | disposition home or self-care (01) ==
LOC: H.ER 16:28
DX: R10.13 Epigastric pain (principal); Z90.49 Acquired absence of other specified parts of digestive tract
CPT/HCPCS: 74177; 80053; 81003; 81025; 83690; 85025; 99284; J2270; J7040; Q9966; Q9967

== ENCOUNTER 2017-08-26 10:55 | Emergency (ER) | payer SELFPAY ==
[2017-08-26 11:03] VITALS: BMI 31.9
[2017-08-26 11:06] VITALS: BP 108/68; TEMP 97.6; O2SAT 99
[2017-08-26 11:23] VITALS: PULSE 76
--- NOTE | 2017-08-26 11:28 | ED PDOC ---
HPI: Female Pain Time Seen by Provider: 08/26/17 11:16 Chief Complaint (Nursing): Female Genitourinary History Per: Patient (This 47 yo lady presents to the ER because bilaterally lower back discomfort that is associated with lower abdominal discomfort and frequency of urine overnight. Patient denies past medical problems. She has not taken any meds for this. She also complaints of burning sensation in her vagina. ) Past Medical History Reviewed: Historical Data, Nursing Documentation, Vital Signs Vital Signs: Last Vital Signs Temp 97.6 F 08/26/17 11:04 Pulse 76 08/26/17 11:20 Resp 20 08/26/17 11:04 BP 108/68 08/26/17 11:04 Pulse Ox 99 08/26/17 11:04 - Medical History PMH: No Chronic Diseases, Migraine Denies: Chronic Kidney Disease - Surgical History Surgical History: Cholecystectomy, (x2) - Family History Family History: States: Unknown Family Hx - Living Arrangements Living Arrangements: With Family - Social History Current smoker - smoking cessation education provided: No - Home Medications Home Medications: Ambulatory Orders Medication Instructions Recorded Ibuprofen [Motrin] 600 mg PO Q6 #20 tab 08/07/16 Metoclopramide [Reglan] 1 tab PO TID PRN #15 tab 09/14/16 Naproxen [Naprosyn] 1 tab PO BID PRN #60 tab 09/14/16 Azithromycin [Zithromax] 250 mg PO DAILY #6 tab 03/15/17 Guaifenesin [Mucinex] 600 mg PO BID PRN #10 tab.er.12h 03/15/17 Ibuprofen [Motrin Tab] 600 mg PO Q6 PRN #15 tab 03/15/17 Cephalexin [Keflex] 500 mg PO TID #15 capsule 04/01/17 Phenazopyridine HCl [Pyridium] 100 mg PO BID PRN #6 tablet 04/01/17 Albuterol HFA [Ventolin HFA 90 2 puff IH [id number] PRN #90 puff 04/27/17 mcg/actuation (8 g)] Azithromycin [Zithromax] 250 mg PO DAILY #6 tab 04/27/17 Promethazine DM [Phenergan DM 5 - 10 ml PO Q8 PRN #120 ml 04/27/17 Syrup] Ranitidine HCl [Zantac] 150 mg PO BID #20 tablet 07/19/17 Sulfamethoxazole/Trimethoprim 1 tab PO BID #6 tab 08/26/17 [Bactrim DS 800 mg-160 mg] - Allergies Allergies/Adverse Reactions: Allergies Allergy/AdvReac Type Severity Reaction Status Date / Time No Known Allergies Allergy Verified 08/26/17 11:19 Review of Systems ROS Statement: Except As Marked, All Systems Reviewed And Found Negative Constitutional: Negative for: Fever, Chills Gastrointestinal: Positive for: Abdominal Pain (lower). Negative for: Nausea, Vomiting Genitourinary Female: Positive for: Frequency Musculoskeletal: Positive for: Back Pain (bilateral lower) Physical Exam - Reviewed Nursing Documentation Reviewed: Yes Vital Signs Reviewed: Yes - Physical Exam Appears: Positive for: Well, Non-toxic, No Acute Distress Head Exam: Positive for: ATRAUMATIC, NORMAL INSPECTION, NORMOCEPHALIC Skin: Positive for: Normal Color, Warm, DRY Eye Exam: Positive for: Normal appearance ENT: Positive for: Normal ENT Inspection Neck: Positive for: Normal Cardiovascular/Chest: Positive for: Regular Rate, Rhythm Respiratory: Positive for: CNT, Normal Breath Sounds Gastrointestinal/Abdominal: Positive for: Normal Exam, Soft Back: Positive for: Normal Inspection Extremity: Positive for: Normal ROM Neurologic/Psych: Positive for: Alert, Oriented - Laboratory Results Urine dip results: Positive for: Leukocyte Esterase (trace) - ECG O2 Sat by Pulse Oximetry: 99 Medical Decision Making Medical Decision Making: accuchek is 104. Urine dip shows trace leuks. Patient's symptoms c/w with UTI. She is otherwise well. Disposition - Clinical Impression Clinical Impression: Cystitis - Patient ED Disposition Is Patient to be Admitted: No Doctor Will See Patient In The: Office Counseled Patient/Family Regarding: Diagnosis, Need For Followup, Rx Given - Disposition Referrals: [facility] [Outside] Disposition: Routine/Home Disposition Time: 11:36 Condition: STABLE Prescriptions: Sulfamethoxazole/Trimethoprim [Bactrim DS 800 mg-160 mg] 1 tab PO BID #6 tab Instructions: Acute Cystitis (DC) Print Language: VIETNAMESE - POA Present On Arrival: None
[2017-08-26 11:57] LABS: SQUAMOUS EPITHIAL 4 /hpf (0-5); URINE BACTERIA RARE (<OCC); URINE BILIRUBIN NEGATIVE (NEGATIVE); URINE BLOOD NEGATIVE (NEGATIVE); URINE CLARITY CLEAR (Clear); URINE COLOR STRAW (YELLOW); URINE GLUCOSE (UA) NEG (Normal); URINE LEUKOCYTE ESTERASE TRACE Leu/uL (Negative); URINE PROTEIN NEGATIVE (NEGATIVE); URINE UROBILINOGEN 0.2-1.0 mg/dL (0.2-1.0)
[2017-08-26 14:16] VITALS: RESP 18
== END 2017-08-26 11:59 | disposition home or self-care (01) ==
LOC: H.ER 10:55
DX: N30.90 Cystitis, unspecified without hematuria (principal)

== ENCOUNTER 2017-11-07 11:23 | Emergency (ER) | payer SELFPAY ==
[2017-11-07 11:24] VITALS: BMI 31.9
--- NOTE | 2017-11-07 12:49 | ED PDOC ---
HPI: Chest Pain Time Seen by Provider: 11/07/17 12:07 Chief Complaint (Nursing): Chest Pain Chief Complaint (Provider): Chest pain History Per: Patient History/Exam Limitations: no limitations Onset/Duration Of Symptoms: Days (few weeks) Current Symptoms Are (Timing): Intermittent Episodes Additional Complaint(s): Marilin Galindo, a 47 year old female with no significant past medical history, presents to the ED with intermittent chest pain and palpitations onset last night at 21:00. Patient states that she has been having palpitations for a few weeks and was placed on a holter monitor for 24 hours, which was removed 4 days ago. However, yesterday she started experiencing chest pain that worsened this morning prompting concern for ED visit. Patient states pain is associated with some difficulty breathing and reports chest pain is currently gone. She denies fever, chills or leg swelling. No further medical complaints. PMD: clinic Past Medical History Reviewed: Historical Data, Nursing Documentation, Vital Signs Vital Signs: Last Vital Signs Temp 97.9 F 11/07/17 20:21 Pulse 58 L 11/07/17 20:21 Resp 18 11/07/17 20:21 BP 97/64 L 11/07/17 20:21 Pulse Ox 98 11/07/17 20:21 - Medical History PMH: Migraine Denies: Chronic Kidney Disease - Surgical History Surgical History: Cholecystectomy, (x2) - Family History Family History: States: Unknown Family Hx - Social History Current smoker - smoking cessation education provided: No Alcohol: None Drugs: Denies - Home Medications Home Medications: Ambulatory Orders Medication Instructions Recorded Ibuprofen [Motrin] 600 mg PO Q6 #20 tab 08/07/16 Metoclopramide [Reglan] 1 tab PO TID PRN #15 tab 09/14/16 Naproxen [Naprosyn] 1 tab PO BID PRN #60 tab 09/14/16 Azithromycin [Zithromax] 250 mg PO DAILY #6 tab 03/15/17 Guaifenesin [Mucinex] 600 mg PO BID PRN #10 tab.er.12h 03/15/17 Ibuprofen [Motrin Tab] 600 mg PO Q6 PRN #15 tab 03/15/17 Cephalexin [Keflex] 500 mg PO TID #15 capsule 04/01/17 Phenazopyridine HCl [Pyridium] 100 mg PO BID PRN #6 tablet 04/01/17 Albuterol HFA [Ventolin HFA 90 2 puff IH [id number] PRN #90 puff 04/27/17 mcg/actuation (8 g)] Azithromycin [Zithromax] 250 mg PO DAILY #6 tab 04/27/17 Promethazine DM [Phenergan DM 5 - 10 ml PO Q8 PRN #120 ml 04/27/17 Syrup] Ranitidine HCl [Zantac] 150 mg PO BID #20 tablet 07/19/17 Fluconazole [Diflucan] 150 mg PO DAILY #1 tab 08/26/17 Sulfamethoxazole/Trimethoprim 1 tab PO BID #6 tab 08/26/17 [Bactrim DS 800 mg-160 mg] - Allergies Allergies/Adverse Reactions: Allergies Allergy/AdvReac Type Severity Reaction Status Date / Time No Known Allergies Allergy Verified 08/26/17 11:19 OCTAVIA Risk Score for UA/NSTEMI - OCTAVIA Risk Score Age > 64: NO 3 or more CAD Risk Factors: NO Known CAD (Stenosis greater than 50%): NO Severe Angina: NO EKG ST changes greater than 0.5mm: NO Positive Cardiac Marker: NO OCTAVIA Score: 0 Risk %: 5% Wells Criteria for PE - Wells Criteria for Pulmonary Embolism Clinical Signs and Symptoms of DVT: No P.E is #1 Diagnosis, or Equally Likely: No Heart Rate >100: No Immobilization at least 3 days;Surgery previous 4 weeks: No Previous, objectively diagnosed PE or DVT: No Total Score: 0 Review of Systems ROS Statement: Except As Marked, All Systems Reviewed And Found Negative Constitutional: Negative for: Fever, Chills Cardiovascular: Positive for: Chest Pain, Palpitations. Negative for: Edema Respiratory: Positive for: Shortness of Breath Physical Exam - Reviewed Nursing Documentation Reviewed: Yes Vital Signs Reviewed: Yes - Physical Exam Appears: Positive for: Non-toxic, No Acute Distress Head Exam: Positive for: ATRAUMATIC, NORMAL INSPECTION, NORMOCEPHALIC Skin: Positive for: Normal Color, Warm, Dry Eye Exam: Positive for: EOMI, Normal appearance, PERRL ENT: Positive for: Normal ENT Inspection Neck: Positive for: Normal, Painless ROM Cardiovascular/Chest: Positive for: Regular Rate, Rhythm Respiratory: Positive for: Normal Breath Sounds. Negative for: Respiratory Distress Gastrointestinal/Abdominal: Positive for: Normal Exam, Soft. Negative for: Tenderness Back: Positive for: Normal Inspection Extremity: Positive for: Normal ROM (upper and lower extremities). Negative for : Deformity, Swelling Neurologic/Psych: Positive for: Alert, Oriented. Negative for: Motor/Sensory Deficits - Laboratory Results Result Diagrams: 11/07/17 14:03 11/07/17 14:03 - ECG O2 Sat by Pulse Oximetry: 99 (RA) Pulse Ox Interpretation: Normal Medical Decision Making Medical Decision Making: Time: 12:07 Initial Impression: chest pains, palpitations Differential Diagnosis: cardiac arrhythmia, ACS , PE Initial plan: --EKG --BMP --Troponin --CBC w/ differential --D Dimer --Chest xray 1 view --ekg monitor Time:13:09 Chest X ray FINDINGS: LUNGS: Clear. PLEURA: No pneumothorax or pleural fluid seen. CARDIOVASCULAR: No radiographic findings to suggest acute or significant cardiovascular disease. OSSEOUS STRUCTURES: No significant abnormalities. VISUALIZED UPPER ABDOMEN: Normal. OTHER FINDINGS: None. IMPRESSION: No active disease. No acute/significant interval changes. Scribe Attestation: Documented by Carlita Urena, acting as a scribe for Sonal Pelayo MD. Provider Scribe Attestation: All medical record entries made by the Scribe were at my direction and personally dictated by me. I have reviewed the chart and agree that the record accurately reflects my personal performance of the history, physical exam, medical decision making, and the department course for this patient. I have also personally directed, reviewed, and agree with the discharge instructions and disposition. Disposition - Clinical Impression Clinical Impression: Chest pain, Palpitations - Patient ED Disposition Is Patient to be Admitted: Transfer of Care Counseled Patient/Family Regarding: Studies Performed, Diagnosis - Disposition Referrals: [facility] [Outside] Disposition: Transfer of Care Disposition Time: 17:00 Condition: STABLE Additional Instructions: Followup with clinic this week. Return to ER for any return of symptoms. Instructions: Chest Pain, Palpitations, Leaving Against Medical Advice Forms: [facility] (Tajik) Print Language: SETSWANA
--- NOTE | 2017-11-07 13:19 | RAD ---
Date of service: 11/07/2017 PROCEDURE: CHEST RADIOGRAPH, 1 VIEW HISTORY: chest pain COMPARISON: 04/27/2017 FINDINGS: LUNGS: Clear. PLEURA: No pneumothorax or pleural fluid seen. CARDIOVASCULAR: No radiographic findings to suggest acute or significant cardiovascular disease. OSSEOUS STRUCTURES: No significant abnormalities. VISUALIZED UPPER ABDOMEN: Normal. OTHER FINDINGS: None. IMPRESSION: No active disease. No acute/significant interval changes.
[2017-11-07 14:33] LABS: BASO % 0.7 % (0.0-2.0); EOS # 0.2 K/uL (0.0-0.7); HEMOGLOBIN 13.4 g/dL (12.0-16.0); LYMPH # 2.1 K/uL (1.0-4.3); LYMPH % 38.7 % (20.0-40.0); MEAN CELL VOLUME 91.8 fl (81.0-99.0); MEAN CORPUSCULAR HEMOGLOBIN 31.5 pg (27.0-31.0); MEAN CORPUSCULAR HGB CONC 34.3 g/dL (33.0-37.0); MEAN PLATELET VOLUME 10.9 fl (7.2-11.7); MONO # 0.3 K/uL (0.0-0.8); MONO % 6.1 % (0.0-10.0); NEUT # 2.8 K/uL (1.8-7.0); NEUT % 51.5 % (50.0-75.0); NRBC % 0.2 % (0.0-0.0); RBC 4.26 Mil/uL (3.80-5.20); RED CELL DISTRIBUTION WIDTH 13.2 % (11.5-14.5); WHITE BLOOD COUNT 5.4 K/uL (4.8-10.8)
[2017-11-07 14:46] LABS: BLOOD UREA NITROGEN 11 mg/dl (7-17); CALCIUM 9.2 mg/dL (8.4-10.2); GFR AFRICAN-AMERICAN > 60; GFR NON-AFRICAN AMERICAN > 60
--- NOTE | 2017-11-07 16:07 | CARD ---
APPROVED REPORT Date of service: 11/07/2017 EKG Measurement Heart [id number] <Conclusion> Sinus bradycardia Otherwise normal ECG
[2017-11-07] MEDS ORDERED: Iodixanol 320 MG/ML 100 ML BOTTLE IV ONE (17:10)
--- NOTE | 2017-11-07 17:12 | ED PDOC ---
- Laboratory Results Result Diagrams: 11/07/17 14:03 11/07/17 14:03 - ECG O2 Sat by Pulse Oximetry: 99 (RA) Medical Decision Making Medical Decision Making: received 5pm pending CTA chest and likely admission [employer] [id number] used to relay results. CTA negative, report from Dr Crawford reviewed. 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 Recommended to followip w clinic this week or return to ER for any return of symptoms. She is symptom free currently clinic informed for continuity of care to assure followup this week/ Disposition Counseled Patient/Family Regarding: Studies Performed, Diagnosis - Clinical Impression Clinical Impression: Chest pain, Palpitations - POA Present On Arrival: None - Disposition Referrals: [facility] [Outside] Disposition: AGAINST MEDICAL ADVICE Disposition Time: 19:46 Condition: STABLE Additional Instructions: Followup with clinic this week. Return to ER for any return of symptoms. Instructions: Chest Pain, Palpitations, Leaving Against Medical Advice Forms: [employer] (Luxembourger) Against Medical Advice - AMA Patient Left Against Medical Advice: The patient declines admission to the hospital and wishes to leave the Emergency Department. This action is against my medical advice. This decision was made with informed refusal. The patient was told that admission to the hospital is necessary. Explanation of the reasons why were discussed. The risks of leaving were explained to the patient and include, but are not limited to, worsening of known or currently unknown conditions, permanent disability and from undiagnosed or untreated conditions. The patient has the capacity to make this informed decision and understands my explanation of the current medical problem and risks of leaving. The patient voluntarily accepts these risks and signed an AMA form documenting our conversation. The patient was given the opportunity to ask questions and reconsider. The patient was encouraged to return to the Emergency Department at any time for further care.
--- NOTE | 2017-11-07 17:51 | CT ---
Date of service: 11/07/2017 PROCEDURE: CT Chest with contrast (Pulmonary Angiogram) HISTORY: chest pain COMPARISON: None. TECHNIQUE: Axial computed tomography images were obtained of the chest in the pulmonary arterial phase of enhancement. Coronal and sagittal reformatted images were created and reviewed. Maximum intensity projection (MIP) reconstructed images in the following planes: Axial only. Intravenous contrast dose: 70 cc Visipaque 320. Mean Hounsfield unit values in the main pulmonary artery: 278.64 Radiation dose: Total exam DLP = 304.91 mGy-cm. This CT exam was performed using one or more of the following dose reduction techniques: Automated exposure control, adjustment of the mA and/or kV according to patient size, and/or use of iterative reconstruction technique. FINDINGS: PULMONARY ARTERIES: Unremarkable. No pulmonary embolism. AORTA: No acute findings. No thoracic aortic aneurysm. LUNGS: Unremarkable. No nodule, mass or pulmonary consolidation. PLEURAL SPACES: Unremarkable. No effusion or pneumothorax. HEART: Unremarkable. No cardiomegaly. No significant pericardial effusion. LYMPH NODES: No lymphadenopathy. BONES, CHEST WALL: Unremarkable. No fracture or destructive lesion OTHER FINDINGS: Unremarkable. IMPRESSION: Unremarkable CT pulmonary angiogram. No pulmonary embolus.
[2017-11-07 20:22] VITALS: BP 97/64; PULSE 58; RESP 18; TEMP 97.9
[2017-11-08 16:21] VITALS: O2SAT 99
== END 2017-11-07 20:28 | disposition left against medical advice (07) ==
LOC: H.ER 11:23
DX: R07.89 Other chest pain (principal); R00.2 Palpitations
CPT/HCPCS: 71045; 71275; 80048; 81025; 84484; 85025; 85378; 93005; 99284; Q9967

== ENCOUNTER 2018-03-09 10:19 | Emergency (ER) | payer SELFPAY ==
[2018-03-09 10:31] VITALS: BMI 30.2
[2018-03-09 10:32] VITALS: RESP 18; TEMP 97.9; O2SAT 99
--- NOTE | 2018-03-09 11:53 | RAD ---
Date of service: 03/09/2018 PROCEDURE: Radiographs of the Chest and Right Ribs. HISTORY: pain, fall, syncope COMPARISON: Chest radiograph 11/07/2017. TECHNIQUE: Frontal radiograph of the chest and multiple oblique radiographs of the right ribs were obtained. FINDINGS: RIGHT RIBS: No fracture or focal lesion visualized. LUNGS: No acute pulmonary disease bilaterally. PLEURA: No pneumothorax or pleural fluid. CARDIOVASCULAR: Normal cardiac size. No pulmonary vascular congestion. No aortic atherosclerotic calcification present OTHER FINDINGS: None. IMPRESSION: Unremarkable radiographs of the chest and right ribs. No right rib fracture.
[2018-03-09 12:08] LABS: BASO % 1.1 % (0.0-2.0); EOS # 0.1 K/uL (0.0-0.7); EOS % 3.2 % (0.0-4.0); LYMPH # 1.2 K/uL (1.0-4.3); LYMPH % 32.1 % (20.0-40.0); MEAN CELL VOLUME 93.1 fl (81.0-99.0); MEAN CORPUSCULAR HEMOGLOBIN 31.2 pg (27.0-31.0); MEAN CORPUSCULAR HGB CONC 33.6 g/dL (33.0-37.0); MEAN PLATELET VOLUME 10.4 fl (7.2-11.7); MONO # 0.2 K/uL (0.0-0.8); MONO % 6.1 % (0.0-10.0); NEUT # 2.1 K/uL (1.8-7.0); NEUT % 57.5 % (50.0-75.0); NRBC % 0.1 % (0.0-0.0); RBC 4.16 Mil/uL (3.80-5.20); WHITE BLOOD COUNT 3.7 K/uL (4.8-10.8)
[2018-03-09 12:16] LABS: ALB/GLOB RATIO 1.2 (1.0-2.1); ALBUMIN 3.7 g/dL (3.5-5.0); ALT/SGPT 31 U/L (9-52); AST/SGOT 21 U/L (14-36); BLOOD UREA NITROGEN 8 mg/dl (7-17); GFR NON-AFRICAN AMERICAN > 60
--- NOTE | 2018-03-09 12:47 | CT ---
Date of service: 03/09/2018 PROCEDURE: CT HEAD WITHOUT CONTRAST. HISTORY: head injury, syncope COMPARISON: 11/26/2015 CT head. 01/16/2014 MRI brain TECHNIQUE: Axial computed tomography images were obtained through the head/brain without intravenous contrast. Supplemental Coronal and Sagittal projections created and reviewed. Radiation dose: Total exam DLP = 750.13 mGy-cm. This CT exam was performed using one or more of the following dose reduction techniques: Automated exposure control, adjustment of the mA and/or kV according to patient size, and/or use of iterative reconstruction technique. FINDINGS: HEMORRHAGE: No intracranial hemorrhage. BRAIN: No mass effect or edema. No atrophy or chronic microvascular ischemic changes. VENTRICLES: Unremarkable. No hydrocephalus. CALVARIUM: Unremarkable. PARANASAL SINUSES: Unremarkable as visualized. No significant inflammatory changes. MASTOID AIR CELLS: Unremarkable as visualized. No inflammatory changes. OTHER FINDINGS: None. IMPRESSION: No acute intracranial abnormalities. No significant findings to account for the clinical presentation. No significant interval change compared to the prior examination(s).
--- NOTE | 2018-03-09 13:52 | ED PDOC ---
HPI: General Adult Time Seen by Provider: 03/09/18 10:27 Chief Complaint (Nursing): Back Pain Chief Complaint (Provider): Right shoulder pain, low back pain since fall last night History Per: Patient History/Exam Limitations: no limitations Onset/Duration Of Symptoms: Days Have you had recent travel within the past 21 days to any of the following countries: [place], [place], [place] or [place]?: No Additional Complaint(s): 48 yo female with no medical problems presents for evaluation of right shoulder and lower back pain since fall last night. PT states she was outside and changing her cats litter box when she fell. Pt states there was nothing to trip on but she woke up on the floor. Pt denies current headache, dizziness, chest pain, SOB and states she was feeling well before fall last night. Pt states she was seen in ER over the summer. 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 Past Medical History Reviewed: Historical Data, Nursing Documentation, Vital Signs Vital Signs: Last Vital Signs Temp 97.9 F 03/09/18 10:31 Pulse 68 03/09/18 10:31 Resp 18 03/09/18 10:31 BP 100/66 03/09/18 10:31 Pulse Ox 99 03/09/18 10:31 - Medical History PMH: Migraine Denies: Chronic Kidney Disease - Surgical History Surgical History: Cholecystectomy, (x2) - Family History Family History: States: Unknown Family Hx - Home Medications Home Medications: Ambulatory Orders Medication Instructions Recorded Ibuprofen [Motrin] 600 mg PO Q6 #20 tab 08/07/16 Metoclopramide [Reglan] 1 tab PO TID PRN #15 tab 09/14/16 Naproxen [Naprosyn] 1 tab PO BID PRN #60 tab 09/14/16 Azithromycin [Zithromax] 250 mg PO DAILY #6 tab 03/15/17 Guaifenesin [Mucinex] 600 mg PO BID PRN #10 tab.er.12h 03/15/17 Ibuprofen [Motrin Tab] 600 mg PO Q6 PRN #15 tab 03/15/17 Cephalexin [Keflex] 500 mg PO TID #15 capsule 04/01/17 Phenazopyridine HCl [Pyridium] 100 mg PO BID PRN #6 tablet 04/01/17 Albuterol HFA [Ventolin HFA 90 2 puff IH [id number] PRN #90 puff 04/27/17 mcg/actuation (8 g)] Azithromycin [Zithromax] 250 mg PO DAILY #6 tab 04/27/17 Promethazine DM [Phenergan DM 5 - 10 ml PO Q8 PRN #120 ml 04/27/17 Syrup] Ranitidine HCl [Zantac] 150 mg PO BID #20 tablet 07/19/17 Fluconazole [Diflucan] 150 mg PO DAILY #1 tab 08/26/17 Sulfamethoxazole/Trimethoprim 1 tab PO BID #6 tab 08/26/17 [Bactrim DS 800 mg-160 mg] - Allergies Allergies/Adverse Reactions: Allergies Allergy/AdvReac Type Severity Reaction Status Date / Time No Known Allergies Allergy Verified 08/26/17 11:19 Review of Systems ROS Statement: Except As Marked, All Systems Reviewed And Found Negative Constitutional: Negative for: Fever, Chills Musculoskeletal: Positive for: Shoulder Pain, Other (Right rib pain) Physical Exam - Reviewed Nursing Documentation Reviewed: Yes Vital Signs Reviewed: Yes - Physical Exam Appears: Positive for: Well, Non-toxic, No Acute Distress Head Exam: Positive for: ATRAUMATIC, NORMAL INSPECTION, NORMOCEPHALIC Skin: Positive for: Normal Color (No erythema, no ecchymosis ), Warm Eye Exam: Positive for: Normal appearance ENT: Positive for: Normal ENT Inspection Neck: Positive for: Normal, Painless ROM Cardiovascular/Chest: Positive for: Regular Rate, Rhythm Respiratory: Positive for: Normal Breath Sounds. Negative for: Accessory Muscle Use, Respiratory Distress Gastrointestinal/Abdominal: Positive for: Normal Exam, Soft. Negative for: Tenderness Back: Positive for: Normal Inspection Extremity: Positive for: Normal ROM (In right shoulder, tenderness right ribs without crepitus or step off ). Negative for: Tenderness, Deformity, Swelling Neurologic/Psych: Positive for: Alert, Oriented - Laboratory Results Result Diagrams: 03/09/18 11:55 03/09/18 11:55 - ECG O2 Sat by Pulse Oximetry: 99 Pulse Ox Interpretation: Normal Medical Decision Making Medical Decision Making: Labs, head CT normal. 1350 - Discussed case with Dr. Oliveira for admission for syncopal episode. Pt. is a patient of the [facility]. Disposition - Clinical Impression Clinical Impression: Syncope, Rib pain on right side, Shoulder pain - Patient ED Disposition Is Patient to be Admitted: Yes - Disposition Disposition Time: 14:01 Condition: STABLE Instructions: Syncope (Fainting) - Pt Status Changed To: Hospital Disposition Of: Observation - Admit Certification Admit to Inpatient:: Telemetry - POA Present On Arrival: None
[2018-03-09 15:12] VITALS: BP 118/63; PULSE 56
--- NOTE | 2018-03-10 00:09 | CARD ---
APPROVED REPORT Date of service: 03/09/2018 EKG Measurement Heart [id number] <Conclusion> Sinus bradycardia Otherwise normal ECG
== END 2018-03-09 14:50 | disposition left against medical advice (07) ==
LOC: H.ER 10:19
DX: R55 Syncope and collapse (principal); S09.90XA Unspecified injury of head, initial encounter; R07.82 Intercostal pain; M25.511 Pain in right shoulder; W19.XXXA Unspecified fall, initial encounter; Y92.89 Other specified places as the place of occurrence of the external cause

== ENCOUNTER 2018-03-27 12:18 | Emergency (ER) | payer SELFPAY ==
[2018-03-27 12:24] VITALS: BMI 31.7
[2018-03-27 12:26] VITALS: TEMP 97.7; O2SAT 99
--- NOTE | 2018-03-27 13:22 | CT ---
Date of service: 03/27/2018 PROCEDURE: CT HEAD WITHOUT CONTRAST. HISTORY: continued headache s/p head injury COMPARISON: Comparison made with CT scan and MRI brain dated 03/09/2018 and 03/22/2018 respectively.. TECHNIQUE: Axial computed tomography images were obtained through the head/brain without intravenous contrast. Radiation dose: Total exam DLP = 744.61 mGy-cm. This CT exam was performed using one or more of the following dose reduction techniques: Automated exposure control, adjustment of the mA and/or kV according to patient size, and/or use of iterative reconstruction technique. FINDINGS: HEMORRHAGE: No acute parenchymal, subarachnoid or extra-axial hemorrhage. BRAIN: Previously noted few tiny focal areas of increased T2 signal scattered about the subcortical white matter both cerebral hemispheres are not appreciated on this exam as compared to high-resolution MRI. No evidence of large acute infarct. No obvious parenchymal nor extra-axial masses or collections identified on this noncontrast exam. VENTRICLES: No obstructive hydrocephalus. CALVARIUM: Unremarkable. PARANASAL SINUSES: Unremarkable as visualized. No significant inflammatory changes. MASTOID AIR CELLS: Unremarkable as visualized. No inflammatory changes. OTHER FINDINGS: None. IMPRESSION: No acute intracranial hemorrhage.
[2018-03-27 13:39] VITALS: BP 118/69; PULSE 64; RESP 18
--- NOTE | 2018-03-27 13:57 | ED PDOC ---
HPI: Headache Time Seen by Provider: 03/27/18 12:35 Chief Complaint (Nursing): Headache History Per: Patient History/Exam Limitations: no limitations Onset/Duration Of Symptoms: Days Additional Complaint(s): 48 year old with no PMHx presenting with headache, states she's had it for 15 days since she fell, states she cannot recall the exact events that happened but she states that she fell after being hit by a glass door and had +Loss of consciousness. States she was in clinic today and was referred to the ED for a CT scan. Patient currently states headache is mild. Denies numbness, weakness, loss of function. PMD: [facility] Past Medical History Reviewed: Historical Data, Nursing Documentation, Vital Signs Vital Signs: Last Vital Signs Temp 97.7 F 03/27/18 13:30 Pulse 64 03/27/18 13:30 Resp 18 03/27/18 13:30 BP 118/69 03/27/18 13:30 Pulse Ox 99 03/27/18 13:30 - Medical History PMH: No Chronic Diseases, Migraine Denies: Chronic Kidney Disease - Surgical History Surgical History: Cholecystectomy, (x2) - Family History Family History: States: Unknown Family Hx - Home Medications Home Medications: Ambulatory Orders Medication Instructions Recorded Lidocaine 5% [Lidoderm] 1 ea TD Q8H #10 patch 03/09/18 Ibuprofen [Motrin Tab] 600 mg PO Q6 #30 tab 03/27/18 - Allergies Allergies/Adverse Reactions: Allergies Allergy/AdvReac Type Severity Reaction Status Date / Time No Known Allergies Allergy Verified 03/27/18 12:26 Review of Systems ROS Statement: Except As Marked, All Systems Reviewed And Found Negative Neurological: Positive for: Headache Physical Exam - Reviewed Nursing Documentation Reviewed: Yes Vital Signs Reviewed: Yes - Physical Exam Appears: Positive for: Well, Non-toxic, No Acute Distress Head Exam: Positive for: ATRAUMATIC, NORMAL INSPECTION, NORMOCEPHALIC Skin: Positive for: Normal Color, Warm, DRY Eye Exam: Positive for: EOMI, Normal appearance, PERRL ENT: Positive for: Normal ENT Inspection Neck: Positive for: Normal, Painless ROM Cardiovascular/Chest: Positive for: Regular Rate, Rhythm Respiratory: Positive for: CNT, Normal Breath Sounds Gastrointestinal/Abdominal: Positive for: Normal Exam, Soft Back: Positive for: Normal Inspection Extremity: Positive for: Normal ROM Neurologic/Psych: Positive for: Alert, veterinary attendant II-XII, Oriented, Cerebellar Tests (Normal), Gait (Normal). Negative for: Motor/Sensory Deficits, Aphasia, Facial Droop - ECG O2 Sat by Pulse Oximetry: 99 Pulse Ox Interpretation: Normal Medical Decision Making Medical Decision Makin Patient presenting with headache, mild, after head injury 2 weeks ago --Patient is very well appearing, non-focal exam --Likely post-concussive syndrome 1330 --Head CT negative --PAtient remains well appearing --Suitable for outpatient followup Disposition - Clinical Impression Clinical Impression: Headache - Disposition Referrals: [facility] [Outside] Disposition: Routine/Home Disposition Time: 13:30 Condition: STABLE Prescriptions: Ibuprofen [Motrin Tab] 600 mg PO Q6 #30 tab Instructions: Headache, Adult Forms: [facility] (Slovenian) Print Language: KENYAN
== END 2018-03-27 13:35 | disposition home or self-care (01) ==
LOC: H.ER 12:18
DX: R51 Headache (principal)

== ENCOUNTER 2018-05-09 13:03 | Emergency (ER) | payer SELFPAY ==
[2018-05-09 13:03] VITALS: BMI 31.7
[2018-05-09 13:19] VITALS: BP 118/68; PULSE 59; RESP 16; TEMP 97.7; O2SAT 98
[2018-05-09] MEDS ORDERED: Sodium Chloride 0.9% 1,000 ML IV STA (13:41)
--- NOTE | 2018-05-09 14:08 | ED PDOC ---
HPI: Abdomen Time Seen by Provider: 05/09/18 13:22 Chief Complaint (Nursing): GI Problem Chief Complaint (Provider): Abdominal Pain History Per: Patient History/Exam Limitations: no limitations Onset/Duration Of Symptoms: Days Current Symptoms Are (Timing): Still Present Location Of Pain/Discomfort: Epigastric Quality Of Discomfort: "Pain" Associated Symptoms: Vomiting, Diarrhea. denies: Fever Additional Complaint(s): 48 year old female presents to the ED for an evaluation of epigastric pain associated with diarrhea and vomiting for one day that is non-bilious and non- bloody. She takes PPI medication. Otherwise, patient denies fever, chills, cough, chest pain, shortness of breath, dysuria, incontinence, vaginal bleeding, back pain, rash, weakness or numbness. PMD: Sum[facility] Escobedo Abnormal Vaginal Bleeding: No Past Medical History Reviewed: Historical Data, Nursing Documentation, Vital Signs Vital Signs: Last Vital Signs Temp 97.7 F 05/09/18 13:17 Pulse 59 L 05/09/18 13:17 Resp 16 05/09/18 13:17 BP 118/68 05/09/18 13:17 Pulse Ox 98 05/09/18 13:17 - Medical History PMH: Migraine Denies: Chronic Kidney Disease - Surgical History Surgical History: Cholecystectomy, (x2) - Family History Family History: States: Unknown Family Hx - Home Medications Home Medications: Ambulatory Orders Medication Instructions Recorded Lidocaine 5% [Lidoderm] 1 ea TD Q8H #10 patch 03/09/18 Ibuprofen [Motrin Tab] 600 mg PO Q6 #30 tab 03/27/18 Ondansetron [Zofran] 4 mg PO Q8H PRN #6 tab 05/09/18 - Allergies Allergies/Adverse Reactions: Allergies Allergy/AdvReac Type Severity Reaction Status Date / Time No Known Allergies Allergy Verified 05/09/18 13:17 Review of Systems ROS Statement: Except As Marked, All Systems Reviewed And Found Negative Constitutional: Negative for: Fever, Chills Cardiovascular: Negative for: Chest Pain Respiratory: Negative for: Cough, Shortness of Breath Gastrointestinal: Positive for: Vomiting, Abdominal Pain, Diarrhea Genitourinary Female: Negative for: Dysuria, Frequency, Incontinence, Vaginal Bleeding Musculoskeletal: Negative for: Back Pain Skin: Negative for: Rash Neurological: Negative for: Weakness, Numbness Physical Exam - Reviewed Nursing Documentation Reviewed: Yes Vital Signs Reviewed: Yes - Physical Exam Appears: Positive for: Non-toxic, No Acute Distress Head Exam: Positive for: ATRAUMATIC, NORMAL INSPECTION, NORMOCEPHALIC Skin: Positive for: Normal Color, Warm, Dry. Negative for: Rash Eye Exam: Positive for: EOMI, Normal appearance, PERRL ENT: Positive for: Normal ENT Inspection Neck: Positive for: Normal, Painless ROM Cardiovascular/Chest: Positive for: Regular Rate, Rhythm. Negative for: Murmur Respiratory: Positive for: Normal Breath Sounds. Negative for: Decreased Breath Sounds, Respiratory Distress Gastrointestinal/Abdominal: Positive for: Tenderness (mild epigastric) Back: Positive for: Normal Inspection Extremity: Positive for: Normal ROM. Negative for: Tenderness, Pedal Edema, Deformity Neurologic/Psych: Positive for: Alert, Oriented (x3) - Laboratory Results Result Diagrams: 05/09/18 14:18 05/09/18 14:18 Lab Results: no acute - ECG O2 Sat by Pulse Oximetry: 98 (RA) Pulse Ox Interpretation: Normal - Progress ED Course And Treament: 1537: Stable. AAOx3. Tolerated PO. No discomfort or symptoms. Fu with pcp Medical Decision Making Medical Decision Making: Time: 1303 Plan: CMP Lipase ED urine CBC w/ differential Normal Saline 1000 mls/hr Pepcid 20mg Reevaluation Scribe Attestation: Documented by Renee Fuentes, acting as a scribe for Tr Paulino MD. Provider Scribe Attestation: All medical record entries made by the Scribe were at my direction and personally dictated by me. I have reviewed the chart and agree that the record accurately reflects my personal performance of the history, physical exam, medical decision making, and the department course for this patient. I have also personally directed, reviewed, and agree with the discharge instructions and disposition. Disposition - Clinical Impression Clinical Impression: Abdominal pain, Nausea & vomiting, Diarrhea - Patient ED Disposition Is Patient to be Admitted: No Counseled Patient/Family Regarding: Studies Performed, Diagnosis, Need For Followup, Rx Given - Disposition Referrals: [facility] [Outside] - 05/10/18 Disposition: Routine/Home Disposition Time: 15:39 Condition: STABLE Additional Instructions: Return if not better in 3 days. Prescriptions: Ondansetron [Zofran] 4 mg PO Q8H PRN #6 tab PRN Reason: Nausea/Vomiting Instructions: Nausea and Vomiting, Adult (DC), Diarrhea in Adolescents and Adults Print Language: UZBEK
[2018-05-09 14:23] LABS: BASO % 0.8 % (0.0-2.0); EOS # 0.2 K/uL (0.0-0.7); EOS % 3.4 % (0.0-4.0); HEMOGLOBIN 13.5 g/dL (12.0-16.0); LYMPH # 1.9 K/uL (1.0-4.3); LYMPH % 42.5 % (20.0-40.0); MEAN CELL VOLUME 92.2 fl (81.0-99.0); MEAN CORPUSCULAR HGB CONC 33.6 g/dL (33.0-37.0); MEAN PLATELET VOLUME 9.9 fl (7.2-11.7); MONO # 0.4 K/uL (0.0-0.8); MONO % 7.8 % (0.0-10.0); NEUT % 45.5 % (50.0-75.0); RBC 4.36 Mil/uL (3.80-5.20); RED CELL DISTRIBUTION WIDTH 13.6 % (11.5-14.5); WHITE BLOOD COUNT 4.5 K/uL (4.8-10.8)
[2018-05-09 14:38] LABS: ALB/GLOB RATIO 1.3 (1.0-2.1); ALBUMIN 4.2 g/dL (3.5-5.0); ALT/SGPT 46 U/L (9-52); AST/SGOT 33 U/L (14-36); BLOOD UREA NITROGEN 11 mg/dl (7-17); CALCIUM 9.4 mg/dL (8.4-10.2); GFR NON-AFRICAN AMERICAN > 60; LIPASE 65 U/L (23-300)
== END 2018-05-09 16:22 | disposition home or self-care (01) ==
LOC: H.ER 13:03
DX: R10.13 Epigastric pain (principal); R11.2 Nausea with vomiting, unspecified; R19.7 Diarrhea, unspecified
CPT/HCPCS: 80053; 83690; 85025; 96361; 96374; 96375; 99283; J2405; J7030

== ENCOUNTER 2018-06-17 20:08 | Emergency (ER) | payer SELFPAY ==
[2018-06-17 20:08] VITALS: BMI 31.7
[2018-06-17 20:32] VITALS: BP 107/70; PULSE 83; RESP 16; TEMP 98.7; O2SAT 98
--- NOTE | 2018-06-17 21:04 | ED PDOC ---
HPI: General Adult Time Seen by Provider: 06/17/18 20:50 Chief Complaint (Nursing): ENT Problem Chief Complaint (Provider): sore throat, ear bleeding History Per: Patient History/Exam Limitations: no limitations Onset/Duration Of Symptoms: Days (x1) Current Symptoms Are (Timing): Still Present Additional Complaint(s): Marilin Galindo is a 48 year old female, with no significant past medical history, who presents to the emergency department complaining of sore throat onset yesterday. Patient states she was seen by PMD. However, she noticed blood and pain from her left ear. She denies any fever, chills, or other medical complaints. PMD: Sumanth Escobedo Past Medical History Reviewed: Historical Data, Nursing Documentation, Vital Signs Vital Signs: Last Vital Signs Temp 98.7 F 06/17/18 20:29 Pulse 83 06/17/18 20:29 Resp 16 06/17/18 20:29 BP 107/70 06/17/18 20:29 Pulse Ox 98 06/17/18 20:29 - Medical History PMH: Migraine Denies: Chronic Kidney Disease - Surgical History Surgical History: Cholecystectomy, (x2) - Family History Family History: States: Unknown Family Hx - Home Medications Home Medications: Ambulatory Orders Medication Instructions Recorded Lidocaine 5% [Lidoderm] 1 ea TD Q8H #10 patch 03/09/18 Ibuprofen [Motrin Tab] 600 mg PO Q6 #30 tab 03/27/18 Famotidine [Pepcid] 20 mg PO Q12 #20 tab 05/09/18 Ondansetron [Zofran] 4 mg PO Q8H PRN #6 tab 05/09/18 Amoxicillin/Clavulanate [Augmentin 1 tab PO BID #14 tab 06/17/18 875 MG-125 MG] Naproxen 375 mg PO Q8 PRN #21 tablet 06/17/18 oxyCODONE/Acetaminophen [Percocet 1 ea PO Q6 PRN #6 tab 06/17/18 5/325 mg Tab] - Allergies Allergies/Adverse Reactions: Allergies Allergy/AdvReac Type Severity Reaction Status Date / Time No Known Allergies Allergy Verified 06/17/18 20:29 Review of Systems ROS Statement: Except As Marked, All Systems Reviewed And Found Negative Constitutional: Negative for: Fever, Chills ENT: Positive for: Ear Pain (and bleeding from left), Throat Pain Physical Exam - Reviewed Nursing Documentation Reviewed: Yes Vital Signs Reviewed: Yes - Physical Exam Appears: Positive for: No Acute Distress Head Exam: Positive for: ATRAUMATIC, NORMAL INSPECTION, NORMOCEPHALIC Skin: Positive for: Normal Color, Warm, Dry Eye Exam: Positive for: Normal appearance, EOMI, PERRL ENT: Positive for: TM Is/Are (Left ear full of blood. Unable to assess TM). Negative for: Pharyngeal Erythema, Tonsillar Exudate, Tonsillar Swelling Neck: Positive for: Normal, Painless ROM, Supple Cardiovascular/Chest: Positive for: Regular Rate, Rhythm. Negative for: Murmur Respiratory: Positive for: Normal Breath Sounds. Negative for: Respiratory Distress Extremity: Positive for: Normal ROM (upper and lower extremities). Negative for: Deformity, Swelling Neurological/Psych: Positive for: Awake, Alert, Normal Tone - ECG O2 Sat by Pulse Oximetry: 98 (RA) Pulse Ox Interpretation: Normal Medical Decision Making Medical Decision Making: Time: 20:50 Initial Impression: Ruptured TM Initial plan: --Reevaluation Scribe Attestation: Documented by Felix French, acting as a scribe for Hollie Oreilly PA-C. Provider Scribe Attestation: All medical record entries made by the Scribe were at my direction and personally dictated by me. I have reviewed the chart and agree that the record accurately reflects my personal performance of the history, physical exam, medical decision making, and the department course for this patient. I have also personally directed, reviewed, and agree with the discharge instructions and disposition. Disposition - Clinical Impression Clinical Impression: Perforated ear drum - Patient ED Disposition Is Patient to be Admitted: No - Disposition Referrals: Oc Guo MD [Staff Provider] - [facility] [Outside] Disposition: Routine/Home Disposition Time: 21:09 Condition: FAIR Prescriptions: Amoxicillin/Clavulanate [Augmentin 875 MG-125 MG] 1 tab PO BID #14 tab Naproxen 375 mg PO Q8 PRN #21 tablet PRN Reason: Pain, Moderate (4-7) oxyCODONE/Acetaminophen [Percocet 5/325 mg Tab] 1 ea PO Q6 PRN #6 tab PRN Reason: Pain, Severe (8-10) Instructions: Ruptured Eardrum (DC) Print Language: AZERI
[2018-06-17] MEDS ORDERED: Oxycodone/Acetaminophen 5/325 mg Tab PO STA (21:08)
[2018-06-17] MEDS ORDERED: Oxycodone/Acetaminophen 5/325 mg Tab ONE (21:35)
== END 2018-06-17 21:50 | disposition home or self-care (01) ==
LOC: H.ER 20:08
DX: H72.92 Unspecified perforation of tympanic membrane, left ear (principal)

== ENCOUNTER 2018-07-22 16:08 | Emergency (ER) | payer SELFPAY ==
[2018-07-22 16:08] VITALS: BMI 31.7
[2018-07-22 16:42] VITALS: BP 121/73; PULSE 62; RESP 18; TEMP 98.1; O2SAT 99
[2018-07-22] MEDS ORDERED: Naproxen 500 MG TAB PO ONE ×2 (17:02→17:39)
--- NOTE | 2018-07-22 17:25 | ED PDOC ---
HPI: General Adult Time Seen by Provider: 07/22/18 16:42 Chief Complaint (Nursing): ENT Problem Chief Complaint (Provider): ENT Problem History Per: Patient, [employer] Pattern [employer] (Betsy Eldridgesavi # [id number]) History/Exam Limitations: language barrier Onset/Duration Of Symptoms: Days (x1) Current Symptoms Are (Timing): Still Present Additional Complaint(s): Patient is a 48 y/o female with a PMHx of migraines who presents to the ED for evaluation of a throat pain radiating to the ears bilaterally, onset yesterday. Patient states she has been taking Tylenol with no relief. Patient denies cough, congestion, fever, chills, abdominal pain, hearing changes, and headache. PCP: None Provided Past Medical History Reviewed: Historical Data, Nursing Documentation, Vital Signs Vital Signs: Last Vital Signs Temp 98.1 F 07/22/18 16:39 Pulse 62 07/22/18 16:39 Resp 18 07/22/18 16:39 BP 121/73 07/22/18 16:39 Pulse Ox 99 07/22/18 16:39 - Medical History PMH: Migraine Denies: Chronic Kidney Disease - Surgical History Surgical History: Cholecystectomy, (x2) - Family History Family History: States: Unknown Family Hx - Home Medications Home Medications: Ambulatory Orders Medication Instructions Recorded Lidocaine 5% [Lidoderm] 1 ea TD Q8H #10 patch 03/09/18 Ibuprofen [Motrin Tab] 600 mg PO Q6 #30 tab 03/27/18 Famotidine [Pepcid] 20 mg PO Q12 #20 tab 05/09/18 Ondansetron [Zofran] 4 mg PO Q8H PRN #6 tab 05/09/18 Amoxicillin/Clavulanate [Augmentin 1 tab PO BID #14 tab 06/17/18 875 MG-125 MG] Naproxen 375 mg PO Q8 PRN #21 tablet 06/17/18 oxyCODONE/Acetaminophen [Percocet 1 ea PO Q6 PRN #6 tab 06/17/18 5/325 mg Tab] Naproxen [Naprosyn] 500 mg PO BID PRN #10 tab 07/22/18 - Allergies Allergies/Adverse Reactions: Allergies Allergy/AdvReac Type Severity Reaction Status Date / Time No Known Allergies Allergy Verified 07/22/18 16:39 Review of Systems Constitutional: Negative for: Fever, Chills ENT: Positive for: Ear Pain, Throat Pain (soreness). Negative for: Nose Congestion, Other (hearing changes) Respiratory: Negative for: Cough Gastrointestinal: Negative for: Abdominal Pain Skin: Negative for: Rash Neurological: Negative for: Headache Physical Exam - Reviewed Nursing Documentation Reviewed: Yes Vital Signs Reviewed: Yes - Physical Exam Appears: Positive for: No Acute Distress Head Exam: Positive for: ATRAUMATIC, NORMAL INSPECTION, NORMOCEPHALIC Skin: Positive for: Normal Color, Warm, DRY Eye Exam: Positive for: EOMI, Normal appearance, PERRL ENT: Positive for: Normal ENT Inspection, TM Is/Are (non-erythematous, non- bulging bilaterally), Pharyngeal Erythema. Negative for: Nasal Congestion, Tonsillar Exudate, Tonsillar Swelling Neck: Positive for: Normal, Painless ROM, Supple Cardiovascular/Chest: Positive for: Regular Rate, Rhythm. Negative for: Murmur Respiratory: Positive for: Normal Breath Sounds. Negative for: Respiratory Distress Gastrointestinal/Abdominal: Positive for: Normal Exam, Soft. Negative for: Tenderness, Organomegaly Back: Positive for: Normal Inspection. Negative for: L CVA Tenderness, R CVA Tenderness, Vertebral Tenderness Extremity: Positive for: Normal ROM. Negative for: Pedal Edema, Deformity Neurological/Psych: Positive for: Alert, Oriented (x3) - ECG O2 Sat by Pulse Oximetry: 99 (RA) Pulse Ox Interpretation: Normal Medical Decision Making Medical Decision Making: Time: 1702 Impression: Throat and Ear Pain; r/o Strep Plan: Naproxen 500 mg PO Rapid Strep Group A Antigen Scribe Attestation: Documented by Jaydon Monge, acting as a scribe Yulia Mcmahon PA-C. Provider Scribe Attestation: All medical record entries made by the Scribe were at my direction and personally dictated by me. I have reviewed the chart and agree that the record accurately reflects my personal performance of the history, physical exam, medical decision making, and the department course for this patient. I have also personally directed, reviewed, and agree with the discharge instructions and disposition. Disposition - Clinical Impression Clinical Impression: Pharyngitis - Patient ED Disposition Is Patient to be Admitted: No - Disposition Referrals: [facility] [Outside] Disposition: Routine/Home Disposition Time: 17:54 Condition: IMPROVED Additional Instructions: HERLINDA RIOS, thank you for letting us take care of you today. Your provider was Raoul Preciado MD and you were treated for B/L EAR PAIN. The emergency medical care you received today was directed at your acute symptoms. If you were prescribed any medication, please fill it and take as directed. It may take several days for your symptoms to resolve. Return to the Emergency Department if your symptoms worsen, do not improve, or if you have any other problems. Please contact your doctor or call one of the physicians/clinics you have been referred to that are listed on the Patient Visit Information form that is included in your discharge packet. Bring any paperwork you were given at [facility] with you along with any medications you are taking to your follow up visit. Our treatment cannot replace ongoing medical care by a primary care provider outside of the emergency department. Thank you for allowing the [facility] team to be part of your care today. If you had an X-Ray or CT scan: A Radiologist will review the ED reading if any change in treatment is needed we will contact you. If you had a blood, urine, or wound culture: It will take several days for the results, if any change in treatment is needed we will contact you. If you had an STI test: It will take 48 hours for the results. Please call after 1 week if you have not heard back. Prescriptions: Naproxen [Naprosyn] 500 mg PO BID PRN #10 tab PRN Reason: Pain Instructions: Viral Pharyngitis (DC), Sore Throat, Adult (DC) Print Language: KOREAN
== END 2018-07-22 18:23 | disposition home or self-care (01) ==
LOC: H.ER 16:08
DX: J02.9 Acute pharyngitis, unspecified (principal)

== ENCOUNTER 2018-08-15 10:41 | Emergency (ER) | payer SELFPAY ==
[2018-08-15 10:44] VITALS: BMI 38.2
[2018-08-15] MEDS ORDERED: Sodium Chloride 0.9% 1,000 ML IV STA (12:03)
--- NOTE | 2018-08-15 12:52 | CT ---
Date of service: 08/15/2018 PROCEDURE: CT HEAD WITHOUT CONTRAST. HISTORY: r/o ICH COMPARISON: 03/27/2018 TECHNIQUE: Axial computed tomography images were obtained through the head/brain without intravenous contrast. Radiation dose: Total exam DLP = 716.58 mGy-cm. This CT exam was performed using one or more of the following dose reduction techniques: Automated exposure control, adjustment of the mA and/or kV according to patient size, and/or use of iterative reconstruction technique. FINDINGS: HEMORRHAGE: No intracranial hemorrhage. BRAIN: No mass effect or edema. No atrophy or chronic microvascular ischemic changes. VENTRICLES: Unremarkable. No hydrocephalus. CALVARIUM: Unremarkable. PARANASAL SINUSES: Unremarkable as visualized. No significant inflammatory changes. MASTOID AIR CELLS: Unremarkable as visualized. No inflammatory changes. OTHER FINDINGS: None. IMPRESSION: No intracranial hemorrhage. Normal CT examination of the head.
[2018-08-15 13:10] LABS: BASO % 0.7 % (0.0-2.0); EOS # 0.2 K/uL (0.0-0.7); EOS % 4.1 % (0.0-4.0); HEMOGLOBIN 13.9 g/dL (12.0-16.0); LYMPH # 1.8 K/uL (1.0-4.3); LYMPH % 39.3 % (20.0-40.0); MEAN CELL VOLUME 92.3 fl (81.0-99.0); MEAN CORPUSCULAR HEMOGLOBIN 31.2 pg (27.0-31.0); MEAN CORPUSCULAR HGB CONC 33.8 g/dL (33.0-37.0); MEAN PLATELET VOLUME 10.2 fl (7.2-11.7); MONO # 0.3 K/uL (0.0-0.8); MONO % 7.6 % (0.0-10.0); NEUT # 2.2 K/uL (1.8-7.0); NEUT % 48.3 % (50.0-75.0); NRBC % 0.1 % (0.0-0.0); RBC 4.45 Mil/uL (3.80-5.20); RED CELL DISTRIBUTION WIDTH 13.4 % (11.5-14.5); WHITE BLOOD COUNT 4.5 K/uL (4.8-10.8)
--- NOTE | 2018-08-15 13:15 | ED PDOC ---
HPI: Headache Time Seen by Provider: 08/15/18 10:59 Chief Complaint (Nursing): Headache Chief Complaint (Provider): Headache History Per: Patient History/Exam Limitations: no limitations Onset/Duration Of Symptoms: Days (x1) Current Symptoms Are (Timing): Still Present Additional Complaint(s): Patient is a 48 y/o female with a PMHx of migraines who presents to the ED for evaluation of a posterior headache of sudden onset yesterday. Patient claims her headache started while she was relaxing. Patient also complains of associated blurry vision. Patient states she took Ibuprofen with no relief. Patient denies nausea, vomiting, and changes in speech. Of note, patient claims to have a history of headaches, however, considers this one to be different in quality and location. PCP: None Past Medical History Reviewed: Historical Data, Nursing Documentation, Vital Signs Vital Signs: Last Vital Signs Temp 97.9 F 08/15/18 10:44 Pulse 66 08/15/18 10:44 Resp 16 08/15/18 10:44 BP 112/71 08/15/18 10:44 Pulse Ox 97 08/15/18 10:44 - Medical History PMH: Migraine Denies: Chronic Kidney Disease - Surgical History Surgical History: Cholecystectomy, (x2) - Family History Family History: States: Unknown Family Hx - Home Medications Home Medications: Ambulatory Orders Medication Instructions Recorded Lidocaine 5% [Lidoderm] 1 ea TD Q8H #10 patch 03/09/18 Ibuprofen [Motrin Tab] 600 mg PO Q6 #30 tab 03/27/18 Famotidine [Pepcid] 20 mg PO Q12 #20 tab 05/09/18 Ondansetron [Zofran] 4 mg PO Q8H PRN #6 tab 05/09/18 Amoxicillin/Clavulanate [Augmentin 1 tab PO BID #14 tab 06/17/18 875 MG-125 MG] Naproxen 375 mg PO Q8 PRN #21 tablet 06/17/18 oxyCODONE/Acetaminophen [Percocet 1 ea PO Q6 PRN #6 tab 06/17/18 5/325 mg Tab] Naproxen [Naprosyn] 500 mg PO BID PRN #10 tab 07/22/18 Ibuprofen [Motrin Tab] 600 mg PO Q6 PRN #15 tab 08/15/18 - Allergies Allergies/Adverse Reactions: Allergies Allergy/AdvReac Type Severity Reaction Status Date / Time No Known Allergies Allergy Verified 07/22/18 16:39 Review of Systems ROS Statement: Except As Marked, All Systems Reviewed And Found Negative Eyes: Positive for: Vision Change Gastrointestinal: Negative for: Nausea, Vomiting Neurological: Positive for: Headache. Negative for: Change in Speech Physical Exam - Reviewed Nursing Documentation Reviewed: Yes Vital Signs Reviewed: Yes - Physical Exam Appears: Positive for: No Acute Distress Head Exam: Positive for: ATRAUMATIC, NORMAL INSPECTION, NORMOCEPHALIC Skin: Positive for: Normal Color, Warm, DRY Eye Exam: Positive for: EOMI, Normal appearance, PERRL Neck: Positive for: Normal, Painless ROM, Supple Cardiovascular/Chest: Positive for: Regular Rate, Rhythm. Negative for: Murmur Respiratory: Positive for: Normal Breath Sounds. Negative for: Respiratory Distress Gastrointestinal/Abdominal: Positive for: Normal Exam, Soft. Negative for: Tenderness Back: Positive for: Normal Inspection. Negative for: L CVA Tenderness, R CVA Tenderness Extremity: Positive for: Normal ROM. Negative for: Pedal Edema, Deformity Neurological/Psych: Positive for: Awake, Alert, Oriented (x3), Gait (normal), Cerebellar Tests (intact), Other (gross visual intact). Negative for: Motor/Sensory Deficits - Laboratory Results Result Diagrams: 08/15/18 12:49 08/15/18 12:49 - ECG O2 Sat by Pulse Oximetry: 97 (RA) Pulse Ox Interpretation: Normal Medical Decision Making Medical Decision Making: Time: 1203 Plan: CT Head w/o Contrast EKG CMP Troponin I CBC PTT Prothrombin Time IV Fluids Reglan 10 mg IVP Toradol 15 mg IVP Time: 1248 CT Head FINDINGS: HEMORRHAGE: No intracranial hemorrhage. BRAIN: No mass effect or edema. No atrophy or chronic microvascular ischemic changes. VENTRICLES: Unremarkable. No hydrocephalus. CALVARIUM: Unremarkable. PARANASAL SINUSES: Unremarkable as visualized. No significant inflammatory changes. MASTOID AIR CELLS: Unremarkable as visualized. No inflammatory changes. OTHER FINDINGS: None. IMPRESSION: No intracranial hemorrhage. Normal CT examination of the head. Time: 1310 CT Head negative. Will get CT Angio given history. Time: 1542 CT Angio FINDINGS: RIGHT CAROTID ARTERIES: Common Carotid Artery: Normal. Carotid Bifurcation: Normal. Internal Carotid Artery:Normal. External Carotid Artery (proximal branches): Normal. LEFT CAROTID ARTERIES: Common Carotid Artery: Normal. Carotid Bifurcation: Normal. Internal Carotid Artery:Normal. External Carotid Artery (proximal branches): Normal. VERTEBRAL ARTERIES: Right Vertebral Artery: Small Left Vertebral Artery: Dominant OTHER FINDINGS: no aortic atherosclerotic calcification or mural plaque present. IMPRESSION: Normal CT Angiography of the neck. CT Angiography of the Brain. HISTORY: severe posterior headache blurry vision COMPARISON: None available. TECHNIQUE: CT angiography of the intracranial arteries was performed. Coronal and sagittal maximum intensity projection reformated images were generated. Radiation dose: Total exam DLP = 461.1 mGy-cm. This CT exam was performed using one or more of the following dose reduction techniques: Automated exposure control, adjustment of the mA and/or kV according to patient size, and/or use of iterative reconstruction technique. FINDINGS: INTERNAL CEREBRAL ARTERIES: Unremarkable. The skull base, petrous, cavernous and supraclinoid segments are bilaterally widely patent. ANTERIOR CEREBRAL ARTERIES: Unremarkable. A1 and A2 segments are widely patent. Smaller distal branches unremarkable, as visualized. MIDDLE CEREBRAL ARTERIES: Unremarkable. M1 and M2 segments are widely patent. Perisylvian branches grossly symmetric. POSTERIOR CIRCULATION: Basilar Artery: Unremarkable. Distal Vertebral Arteries: Unremarkable. Posterior Cerebral Arteries: Unremarkable. Posterior Inferior Cerebellar Arteries: Unremarkable. ANEURYSM/ VASCULAR MALFORMATIONS: None. OTHER FINDINGS: None. IMPRESSION: Unremarkable CT Angiography of the Brain. Time: 1545 On reevaluation symptoms have resolved. Results discussed with patient. Patient instructed to go to clinic for Neurology followup. Scribe Attestation: Documented by Jaydon Monge, acting as a scribe Kellee Morfin III, DO. Provider Scribe Attestation: All medical record entries made by the Scribe were at my direction and personally dictated by me. I have reviewed the chart and agree that the record accurately reflects my personal performance of the history, physical exam, medical decision making, and the department course for this patient. I have also personally directed, reviewed, and agree with the discharge instructions and disposition. Disposition - Clinical Impression Clinical Impression: Chronic headache disorder - Disposition Referrals: Sharmila Sarkar MD [Medical Doctor] - Disposition Time: 15:50 Condition: STABLE Additional Instructions: Return to ER for any new or worsening symptoms/ Followup with neurology for further testing.\ Prescriptions: Ibuprofen [Motrin Tab] 600 mg PO Q6 PRN #15 tab PRN Reason: Pain, Moderate (4-7) Instructions: Headache, Adult (DC) Forms: [facility] (Sami) Print Language: TOGOLESE
[2018-08-15 13:23] LABS: ALB/GLOB RATIO 1.3 (1.0-2.1); ALBUMIN 4.3 g/dL (3.5-5.0); ALT/SGPT 37 U/L (9-52); AST/SGOT 29 U/L (14-36); BLOOD UREA NITROGEN 12 mg/dl (7-17); CALCIUM 9.2 mg/dL (8.4-10.2); GFR NON-AFRICAN AMERICAN > 60
[2018-08-15 13:56] LABS: PROTHROMBIN TIME 11.7 Seconds (9.8-13.1)
[2018-08-15 13:59] LABS: PARTIAL THROMBOPLASTIN TIME 36.4 Seconds (25.6-37.1)
[2018-08-15] MEDS ORDERED: Dexamethasone 10 MG in Sodium Chloride 0.9% 50 ML IV STA (14:34)
[2018-08-15] MEDS ORDERED: Iodixanol 320 MG/ML 100 ML BOTTLE IV ONE (14:39)
[2018-08-15] MEDS ORDERED: Sodium Chloride 0.9% 50 ML IV ONE (14:39)
--- NOTE | 2018-08-15 15:50 | CT ---
Date of service: 08/15/2018 PROCEDURE: CT Angiography of the neck with contrast HISTORY: severe posterior headache blurry vision COMPARISON: None. TECHNIQUE: Contiguous axial images of the neck were obtained from the level of the skull-base to the superior mediastinum in the arteriographic phase of enhancement. Coronal and sagittal reformats or also generated. IV contrast dose: 100 cc of Visipaque Radiation dose: Total exam DLP = 461.1 mGy-cm. This CT exam was performed using one or more of the following dose reduction techniques: Automated exposure control, adjustment of the mA and/or kV according to patient size, and/or use of iterative reconstruction technique. FINDINGS: RIGHT CAROTID ARTERIES: Common Carotid Artery: Normal. Carotid Bifurcation: Normal. Internal Carotid Artery:Normal. External Carotid Artery (proximal branches): Normal. LEFT CAROTID ARTERIES: Common Carotid Artery: Normal. Carotid Bifurcation: Normal. Internal Carotid Artery:Normal. External Carotid Artery (proximal branches): Normal. VERTEBRAL ARTERIES: Right Vertebral Artery: Small Left Vertebral Artery: Dominant OTHER FINDINGS: no aortic atherosclerotic calcification or mural plaque present. IMPRESSION: Normal CT Angiography of the neck. CT Angiography of the Brain. HISTORY: severe posterior headache blurry vision COMPARISON: None available. TECHNIQUE: CT angiography of the intracranial arteries was performed. Coronal and sagittal maximum intensity projection reformated images were generated. Radiation dose: Total exam DLP = 461.1 mGy-cm. This CT exam was performed using one or more of the following dose reduction techniques: Automated exposure control, adjustment of the mA and/or kV according to patient size, and/or use of iterative reconstruction technique. FINDINGS: INTERNAL CEREBRAL ARTERIES: Unremarkable. The skull base, petrous, cavernous and supraclinoid segments are bilaterally widely patent. ANTERIOR CEREBRAL ARTERIES: Unremarkable. A1 and A2 segments are widely patent. Smaller distal branches unremarkable, as visualized. MIDDLE CEREBRAL ARTERIES: Unremarkable. M1 and M2 segments are widely patent. Perisylvian branches grossly symmetric. POSTERIOR CIRCULATION: Basilar Artery: Unremarkable. Distal Vertebral Arteries: Unremarkable. Posterior Cerebral Arteries: Unremarkable. Posterior Inferior Cerebellar Arteries: Unremarkable. ANEURYSM/ VASCULAR MALFORMATIONS: None. OTHER FINDINGS: None. IMPRESSION: Unremarkable CT Angiography of the Brain.
[2018-08-15 16:30] VITALS: BP 98/54; PULSE 85; RESP 18; TEMP 97.7; O2SAT 18
--- NOTE | 2018-08-15 17:13 | CARD ---
APPROVED REPORT Date of service: 08/15/2018 EKG Measurement Heart [id number] <Conclusion> Sinus bradycardia Otherwise normal ECG
== END 2018-08-15 16:05 | disposition home or self-care (01) ==
LOC: H.ER 10:41
DX: R51 Headache (principal)
CPT/HCPCS: 70450; 70496; 70498; 80053; 81025; 84484; 85025; 85610; 85730; 93005; 96361; 96374; 96375; 99285; J1100; J1885; J2765; J7030; Q9967